=== PATIENT | female | born 1955 | race Caucasian/White ===

== ENCOUNTER 2018-06-29 15:42 | Emergency (ER) | payer BC ==
[~2018-06-29 15:42] MED LIST: ETOMIDATE INJ/PF 20 MG/10 ML SDV IV ONE; ROCURONIUM BROMIDE INJ 50 MG/5 ML VIAL IV ONE
[2018-06-29] MEDS ORDERED: ETOMIDATE INJ/PF 20 MG/10 ML SDV IV ONE (15:49)
[2018-06-29] MEDS ORDERED: ROCURONIUM BROMIDE INJ 50 MG/5 ML VIAL IV ONE (15:50)
[2018-06-29] MEDS ORDERED: NORMAL SALINE 1000 ML 1,000 ML IV ONE (15:54)
[2018-06-29 16:04] LABS: INTERNATIONAL RATION (INR) 0.85; PROTHROMBIN TIME 12.1 SEC (11.4-15.4)
--- NOTE | 2018-06-29 16:05 | ER Document Report ---
ED General - General Chief Complaint: Altered Mental Status Stated Complaint: DIFFICULTY BREATHING Time Seen by Provider: 06/29/18 15:52 TRAVEL OUTSIDE OF THE [place] IN LAST 30 DAYS: No - HPI Notes: Patient is a 63-year-old female that presents to the emergency department for chief complaint of altered mental status. EMS reports that patient was last known normal around noon or 1 PM today. When they arrived at her house she was responding to verbal commands but appeared confused and had left-sided weakness. Patient was wearing her 3 L nasal cannula oxygen and had a oxygen saturation of 50%. She had increased work of breathing and then became more apneic and unresponsive and route. EMS tried CPAP and then began bagging the patient. EMS noted that she began having a left-sided facial droop and route. Patient was unresponsive at presentation which limits my HPI Past Medical History: COPD Past Surgical History: Unknown Social History: History of tobacco use Family History: Reviewed and noncontributory for presenting illness Allergies: Reviewed, see documented allergy list. REVIEW OF SYSTEMS: Unable to obtain because of acuity of condition PHYSICAL EXAMINATION: Vital signs reviewed, nursing noted reviewed. GENERAL: Unresponsive HEAD: Atraumatic, normocephalic. EYES: PERRLA sclera anicteric, conjunctiva are normal. ENT: nares patent, oropharynx clear without exudates. Dry mucous membranes. NECK: Trachea midline, supple without lymphadenopathy LUNGS: Breath sounds diminished to auscultation bilaterally, apneic respirations HEART: Tachycardic rate and regular rhythm without murmurs ABDOMEN: Soft, nondistended, no masses appreciated. EXTREMITIES: No long bone deformity NEUROLOGICAL: GCS 3, unresponsive SKIN: Warm, Dry, normal turgor, no rashes or lesions noted on exposed skin - Related Data Allergies/Adverse Reactions: Iodinated Contrast- Oral and IV Dye [IV Dye, Iodine Containing] Allergy (Verified 06/29/18 15:55) Sulfa (Sulfonamide Antibiotics) Allergy (Verified 06/29/18 15:55) Past Medical History - Social History Smoking Status: Unknown if Ever Smoked Family History: None, Reviewed & Not Pertinent - Past Medical History Cardiac Medical History: Reports: Hx Hypertension Pulmonary Medical History: Reports: Hx Bronchitis, Hx COPD Psychiatric Medical History: Reports: Hx Depression - anxiety Past Surgical History: Reports: Hx Tonsillectomy - Immunizations Hx Diphtheria, Pertussis, Tetanus Vaccination: Yes Hx Pneumococcal Vaccination: 08/01/15 Physical Exam - Vital signs Vitals: Pulse Ox 94 06/29/18 15:45 Course - Re-evaluation Re-evalutation: 06/29/18 16:04 Vitals reviewed. Nursing notes reviewed. Patient presented by EMS unresponsive with a GCS of 3 and being ventilated by EMS with BVM. She was intubated for airway protection. One attempted intubation was successful. Patient is not sedated and has not had any neurologic function to this point. OG and Kelly cat heter were placed. EKG shows no STEMI. Patient's blood pressure did decrease slightly after intubation and she was started on IV fluids. She was transferred to CT scan. 06/29/18 17:02 CT shows no acute intracranial pathology including hemorrhage or ischemic stroke. Chest x-ray does show a small 10% pneumothorax with no tension component. Patient's pneumothorax was likely caused by BVM or her COPD. Her ABG shows hypercapnic respiratory failure. Patient was reevaluated and still has a GCS of 3T and is not on any sedation medicine. I did discuss her pneumothorax with the [facility] team who does not feel she is requiring pigtail catheter with their altitudes today. They do have the capacity to place a PICC line catheter in route. Patient's is now at bedside. He states she was acting "different" last night and started having a more difficult time breathing throughout today and became more altered around noon. Patient is outside the window for TPA. I did discuss her care with neurology at [facility] who agreed that without a good timeline and with the severity of her symptoms TPA should not be administered. Patient will be transferred to [facility] for further neurologic assessment. Laboratory 06/29/18 06/29/18 06/29/18 15:44 15:44 15:44 WBC 17.1 H RBC 4.56 Hgb 13.1 Hct 39.8 MCV 87 MCH 28.6 MCHC 32.8 RDW 15.1 H Plt Count 199 Total Counted 100 Seg Neutrophils % Not Reportable Seg Neuts % (Manual) 86 H Lymphocytes % Not Reportable Lymphocytes % (Manual) 7 L Monocytes % Not Reportable Monocytes % (Manual) 7 Eosinophils % Not Reportable Eosinophils % (Manual) 0 Basophils % Not Reportable Basophils % (Manual) 0 Absolute Neutrophils Not Reportable Abs Neuts (Manual) 14.7 H Absolute Lymphocytes Not Reportable Abs Lymphs (Manual) 1.2 Absolute Monocytes Not Reportable Abs Monocytes (Manual) 1.2 Absolute Eosinophils Not Reportable Absolute Eos (Manual) 0.0 Absolute Basophils Not Reportable Abs Basophils (Manual) 0.0 Toxic Vacuolation PRESENT Large Platelets PRESENT Platelet Comment ADEQUATE Polychromasia SLIGHT Basophilic Stippling PRESENT Anisocytosis SLIGHT PT 12.1 INR 0.85 APTT 28.0 Carbonic Acid HCO3/H2CO3 Ratio ABG pH ABG pCO2 ABG pO2 ABG HCO3 ABG Total CO2 ABG O2 Saturation ABG Base Excess FiO2 Sodium 129.0 L Potassium 4.8 Chloride 80 L Carbon Dioxide 40 H* Anion Gap 9 BUN 13 Creatinine 0.49 L Est GFR ( Amer) > 60 Est GFR (Non-Af Amer) > 60 Glucose 133 H Lactic Acid Calcium 9.0 Total Bilirubin 0.4 Direct Bilirubin 0.3 Neonat Total Bilirubin Not Reportable Neonat Direct Bilirubin Not Reportable Neonat Indirect Bili Not Reportable AST 24 ALT 35 Alkaline Phosphatase 96 Creatine Kinase 98 CK-MB (CK-2) Troponin I Total Protein 7.2 Albumin 3.9 06/29/18 06/29/18 06/29/18 15:44 15:44 16:25 WBC RBC Hgb Hct MCV MCH MCHC RDW Plt Count Total Counted Seg Neutrophils % Seg Neuts % (Manual) Lymphocytes % Lymphocytes % (Manual) Monocytes % Monocytes % (Manual) Eosinophils % Eosinophils % (Manual) Basophils % Basophils % (Manual) Absolute Neutrophils Abs Neuts (Manual) Absolute Lymphocytes Abs Lymphs (Manual) Absolute Monocytes Abs Monocytes (Manual) Absolute Eosinophils Absolute Eos (Manual) Absolute Basophils Abs Basophils (Manual) Toxic Vacuolation Large Platelets Platelet Comment Polychromasia Basophilic Stippling Anisocytosis PT INR APTT Carbonic Acid 2.11 H HCO3/H2CO3 Ratio 17:1 ABG pH 7.34 L ABG pCO2 70.0 H* ABG pO2 169.2 H ABG HCO3 36.5 H ABG Total CO2 38.6 H ABG O2 Saturation 99.0 H ABG Base Excess 8.0 FiO2 45% Sodium Potassium Chloride Carbon Dioxide Anion Gap BUN Creatinine Est GFR ( Amer) Est GFR (Non-Af Amer) Glucose Lactic Acid 0.7 Calcium Total Bilirubin Direct Bilirubin Neonat Total Bilirubin Neonat Direct Bilirubin Neonat Indirect Bili AST ALT Alkaline Phosphatase Creatine Kinase CK-MB (CK-2) 9.61 H Troponin I 0.035 Total Protein Albumin Chest X-Ray 06/29/18 15:48 IMPRESSION: Right apical pneumothorax estimated 10%. No mediastinal shift. Head CT 06/29/18 15:48 IMPRESSION: Chronic changes of atrophy and small vessel disease. Subtle asymmetric area of decreased attenuation in the right posterior frontal anterior parietal lobe. Developing infarct cannot entirely be excluded. This is best demonstrated on series 2, image 20 EVIDENCE OF ACUTE STROKE: Equivocal. - Vital Signs Vital signs: Temp Pulse Resp BP Pulse Ox 12 191/100 H 98 06/29/18 16:51 06/29/18 16:51 06/29/18 16:51 - Laboratory Result Diagrams: 06/29/18 15:44 06/29/18 15:44 Laboratory results interpreted by me: 06/29/18 06/29/18 06/29/18 15:44 15:44 15:44 WBC 17.1 H RDW 15.1 H Seg Neuts % (Manual) 86 H Lymphocytes % (Manual) 7 L Abs Neuts (Manual) 14.7 H Carbonic Acid ABG pH ABG pCO2 ABG pO2 ABG HCO3 ABG Total CO2 ABG O2 Saturation Sodium 129.0 L Chloride 80 L Carbon Dioxide 40 H* Creatinine 0.49 L Glucose 133 H CK-MB (CK-2) 9.61 H 06/29/18 16:25 WBC RDW Seg Neuts % (Manual) Lymphocytes % (Manual) Abs Neuts (Manual) Carbonic Acid 2.11 H ABG pH 7.34 L ABG pCO2 70.0 H* ABG pO2 169.2 H ABG HCO3 36.5 H ABG Total CO2 38.6 H ABG O2 Saturation 99.0 H Sodium Chloride Carbon Dioxide Creatinine Glucose CK-MB (CK-2) - EKG Interpretation by Me Additional EKG results interpreted by me: 06/29/18 16:03 Interpreted by myself 1553: Sinus tachycardia, rate 127, normal axis, no STEMI Procedures - Intubation Orotracheal Time of Intubation: 16:07 Airway evaluation: Normal anatomy Mallampati Classification: Class 2 Medications: Etomidate, Other - Roccuronium Intubation method: Orotracheal Equipment used: Glidescope ETT size: 7.5 ETT secured at: Gums ETT secured at (cm): 23 Breath Sounds after Intubation: Equal Post Intubation Xray: Yes Intubation Complications: No complications Critical Care Note - Critical Care Note Total time excluding time spent on procedures (mins): 60 Comments: Critical care time 60 exclusive from separate billable procedures for a patient requiring complex medical decision making, and high potential for clinical deterioration. Time spent obtaining history from patient or surrogate, discussions with consultants, development of treatment plan with patient or surrogate, evaluation of patient's response to treatment, examination of patient, ordering and performing treatments and interventions, ordering and review of laboratory studies, re-evaluation of patient's condition, ordering and review of radiographic studies and review of old charts Discharge - Discharge Clinical Impression: Pneumothorax, right, Unresponsive Hypercapnic respiratory failure Qualifiers: Chronicity: acute Qualified Code(s): J96.02 - Acute respiratory failure with hypercapnia Condition: Critical Disposition: [facility]
[2018-06-29 16:11] LABS: HEMATOCRIT 39.8 % (36.0-47.0); HEMOGLOBIN 13.1 g/dL (12.0-15.5); MEAN CORPUSCULAR HEMOGLOBIN 28.6 pg (27.0-33.4); MEAN CORPUSCULAR HGB CONC 32.8 g/dL (32.0-36.0); MEAN CORPUSCULAR VOLUME 87 fl (80-97); PLATELET COUNT 199 10^3/uL (150-450); RED BLOOD COUNT 4.56 10^6/uL (3.72-5.28); RED CELL DISTRIBUTION WIDTH 15.1 % (11.5-14.0); WHITE BLOOD COUNT 17.1 10^3/uL (4.0-10.5)
[2018-06-29 16:25] LABS: ALANINE AMINOTRANSFERASE 35 U/L (9-52); ALBUMIN 3.9 g/dL (3.5-5.0); ALKALINE PHOSPHATASE 96 U/L (38-126); ASPARTATE AMINO TRANSFERASE 24 U/L (14-36); BILIRUBIN,DIRECT 0.3 mg/dL (0.0-0.4); BILIRUBIN,TOTAL 0.4 mg/dL (0.2-1.3); BLOOD UREA NITROGEN 13 mg/dL (7-20); CHLORIDE 80 mmol/L (98-107); CREATINE KINASE 98 U/L (30-135); GLUCOSE 133 mg/dL (75-110); POTASSIUM 4.8 mmol/L (3.6-5.0); TOTAL PROTEIN 7.2 g/dL (6.3-8.2)
--- NOTE | 2018-06-29 16:28 | RADIOLOGY REPORT (SQ) ---
EXAM DESCRIPTION: CT HEAD WITHOUT COMPLETED DATE/TIME: 06/29/2018 4:14 pm REASON FOR STUDY: t2 stroke alert COMPARISON: 09/04/2007 TECHNIQUE: Axial images acquired through the brain without intravenous contrast. Images reviewed wi th bone, brain and subdural windows. Additional sagittal and coronal reconstructions were generated. Images stored on PACS. All CT scanners at this facility use dose modulation, iterative reconstruction, and/or weight based d osing when appropriate to reduce radiation dose to as low as reasonably achievable (ALARA). [facility]: Dose Right [facility]: CareDose [facility]: Dose Right [facility]: Teradose 4D [facility]: [employer] RADIATION DOSE: CT Rad equipment meets quality standard of care and radiation dose reduction techniq ues were employed. CTDIvol: 53.2 mGy. DLP: 964 mGy-cm. mGy. LIMITATIONS: None. FINDINGS: VENTRICLES: Normal in size. CEREBRUM: No masses. No hemorrhage. No midline shift. Areas of low density in the white matter mos t likely due to chronic micro-vascular ischemic change. Subtle asymmetric decreased attenuation in t he right posterior frontal anterior parietal region on the right. This is a soft finding but early i schemic change cannot be excluded. Correlation with MRI may be helpful for further evaluation. No e vidence for acute infarction. CEREBELLUM: No masses. No hemorrhage. No alteration of density. No evidence for acute infarction. EXTRAAXIAL SPACES: Mild age-related involutional change. No fluid collections. No masses. ORBITS AND GLOBE: No intra- or extraconal masses. Normal contour of globe without masses. CALVARIUM: No fracture. PARANASAL SINUSES: No fluid or mucosal thickening. SOFT TISSUES: No mass or hematoma. OTHER: No other significant finding. PARANASAL SINUSES: There is left maxillary sinusitis. IMPRESSION: Chronic changes of atrophy and small vessel disease. Subtle asymmetric area of decrease d attenuation in the right posterior frontal anterior parietal lobe. Developing infarct cannot entir dayana be excluded. This is best demonstrated on series 2, image 20 EVIDENCE OF ACUTE STROKE: Equivocal. COMMENT: Pertinent findings on the imaging study reported as a CRITICAL RESULT to [facility] Multani 6:18 on 06/29/2018. Category of Critical Result: Stroke protocol. TECHNICAL DOCUMENTATION: JOB ID: [id number] Quality ID # [id number]: Final reports with documentation of one or more dose reduction techniques (e.g., Au tomated exposure control, adjustment of the mA and/or kV according to patient size, use of iterative reconstruction technique) 2010 [employer]- All Rights Reserved Reading location - IP/workstation name: [email or web address]
--- NOTE | 2018-06-29 16:29 | RADIOLOGY REPORT (SQ) ---
EXAM DESCRIPTION: CHEST SINGLE VIEW COMPLETED DATE/TIME: 06/29/2018 4:17 pm REASON FOR STUDY: t2 stroke alert COMPARISON: 12/21/2015 NUMBER OF VIEWS: One view. TECHNIQUE: Single frontal radiographic image of the chest acquired. LIMITATIONS: None. FINDINGS: LUNGS AND PLEURA: Chronic blunting of the left costophrenic angle with ipsilateral volume loss. COPD. Right apical pneumothorax estimated 10%. MEDIASTINUM AND HEART: Stable heart size and mediastinal structures. SUPPORT DEVICES: Appropriate position of endotracheal and nasogastric tubes. BONY STRUCTURES: No acute findings. HARDWARE: None. OTHER: No other significant finding. IMPRESSION: Right apical pneumothorax estimated 10%. No mediastinal shift. COMMENT: Findings were called to Dr. Carroll at 1623 hours. Reading location - IP/workstation name: [email or web address]
[2018-06-29 16:33] LABS: ANION GAP 9 (5-19)
[2018-06-29 16:35] LABS: ARTERIAL BLOOD H2CO3 2.11 mmol/L (1.05-1.35); ARTERIAL BLOOD HCO3 36.5 mmol/L (20-24); ARTERIAL BLOOD PH 7.34 (7.35-7.45); ARTERIAL BLOOD PO2 169.2 mmHg (80-100); ARTERIAL BLOOD TOTAL CO2 38.6 mmol/L (21-25)
[2018-06-29 16:35] LABS: CREATINE KINASE MB 9.61 ng/mL (<4.55)
[2018-06-29 16:37] LABS: ARTERIAL BLOOD FIO2 45%
[2018-06-29 16:40] LABS: CARBON DIOXIDE 40 mmol/L (22-30)
[2018-06-29 16:48] LABS: ABSOLUTE LYMPHOCYTES# (MANUAL) 1.2 10^3/uL (0.5-4.7); ABSOLUTE MONOCYTES # (MANUAL) 1.2 10^3/uL (0.1-1.4); ABSOLUTE NEUTROPHILS# (MANUAL) 14.7 10^3/uL (1.7-8.2); BASOPHILS % (MANUAL) 0 % (0-2); EOSINOPHILS % (MANUAL) 0 % (0-6); LYMPHOCYTES % (MANUAL) 7 % (13-45); MONOCYTES % (MANUAL) 7 % (3-13); SEGMENTED NEUTROPHILS % (MAN) 86 % (42-78); TOTAL CELLS COUNTED 100
[2018-06-29 16:49] LABS: TROPONIN I 0.035 ng/mL
[2018-06-29 16:51] LABS: ANISOCYTOSIS SLIGHT; PLATELET COMMENT ADEQUATE; PLATELET LARGE PRESENT; POLYCHROMASIA SLIGHT; TOXIC VACUOLATION PRESENT
[2018-06-29 17:17] VITALS: BP 190/98
--- NOTE | 2018-06-29 23:39 | EKG REPORT ---
SEVERITY:- OTHERWISE NORMAL ECG - SINUS TACHYCARDIA BORDERLINE RIGHT AXIS DEVIATION : Confirmed by: Joe aTm 29-Jun-2018 23:38:01
== END 2018-06-29 17:17 | disposition short-term general hospital (02) ==
LOC: ER 15:42
PROC: 0BH17EZ Insertion of Endotracheal Airway into Trachea, Via Natural or Artificial Opening (ICD-10-PCS; principal; 2018-06-29)
DX: J93.9 Pneumothorax, unspecified (principal); J96.02 Acute respiratory failure with hypercapnia; R41.82 Altered mental status, unspecified; R53.1 Weakness; J44.9 Chronic obstructive pulmonary disease, unspecified; I10 Essential (primary) hypertension
CPT/HCPCS: 31500; 93005; 99291; 96360; 51702; 36415; 87040; 82553; 82803; 82550; 85025; 85610; 85730; 80053; 84484; 83605; 71045; 70450; 94660; 93010; J3490 ×2; J7030

== ENCOUNTER → 2018-09-05 | Outpatient (CLI) | payer BC ==
--- NOTE | 2018-09-07 13:48 | RADIOLOGY REPORT (SQ) ---
EXAM DESCRIPTION: CT LUNG CANCER SCREENING COMPLETED DATE/TIME: 09/05/2018 12:57 pm REASON FOR STUDY: Z87.891 PERSONAL HISTORY OF NICOTINE DEPENDENCE Z87.891 PERSONAL HISTORY OF NICOT INE DEPENDENCE Has the patient had a Chest CT scan within the past year? Was the patient offered tobacco cessation counseling? Was the patient engaged in shared decision making for this test? Does the patient have signs or symptoms of Lung Cancer? Is the patient a smoker? How many pack years? How many years since quitting smoking? Patients age: COMPARISON: None. TECHNIQUE: Low Dose CT scan performed of the chest without intravenous contrast for purposes of scre ening for lung cancer. Images reviewed with lung, soft tissue and bone windows. Reconstructed coron al and sagittal MPR images reviewed. All images stored on PACS. All CT scanners at this facility use dose modulation, iterative reconstruction, and/or weight based d osing when appropriate to reduce radiation dose to as low as reasonably achievable (ALARA). [facility]: Dose Right [facility]: CareDose [facility]: Dose Right [facility]: Teradose 4D [facility]: [employer] RADIATION DOSE: CT Rad equipment meets quality standard of care and radiation dose reduction techniq ues were employed. CTDIvol: 2.1 mGy. DLP: 83 mGy-cm. mGy. . LIMITATIONS: No technical limitations. FINDINGS: LUNGS AND PLEURA: No masses or nodules. No pleural effusions or calcifications. No pne umothorax. Fairly extensive bilateral emphysematous change. Scattered areas of linear scarring. HILAR AND MEDIASTINAL STRUCTURES: No identified masses. No abnormal nodes. HEART AND VASCULAR STRUCTURES: No aortic aneurysm. No pericardial effusion. No cardiac devices. CORONARY ARTERY CALCIFICATIONS: No significant calcifications. UPPER ABDOMEN: No significant findings. THYROID AND OTHER SOFT TISSUES: No masses. No adenopathy. BONY STRUCTURES: No significant finding. OTHER: No other significant findings. LUNGS AND PLEURA: No masses or nodules. No pleural effusions or calcifications. No pneumothorax. Bilateral emphysematous changes. There are linear areas of scar. Small subpleural blebs. IMPRESSION: No significant pulmonary nodules. Other findings as above. LUNGRADS: LUNGRADS: 1 NEGATIVE. NO NODULES, OR DEFINITELY BENIGN NODULES MODIFIER: S CLINICALLY SIGNIFICANT OR POTENTIALLY CLINICALLY SIGNIFICANT FINDINGS (non lung cancer) RECOMMENDATION: Continue annual screening with LDCT in 12 months. COMMENT: CRITERIA: No lung nodules. Nodules with specific calcifications: Complete, central, popcorn, concentric rings and fat containin g nodules. TECHNICAL DOCUMENTATION: JOB ID: [id number] Quality ID # [id number]: Final reports with documentation of one or more dose reduction techniques (e.g., Au tomated exposure control, adjustment of the mA and/or kV according to patient size, use of iterative reconstruction technique) 2010 [facility] [place] Radiology Reading location - IP/workstation name: [email or web address]
== END ==
LOC: RAD 12:42
PROVIDERS: ATTEND Internal Medicine Pulmonary Disease
DX: Z12.2 Encounter for screening for malignant neoplasm of respiratory organs (principal); Z09 Encounter for follow-up examination after completed treatment for conditions other than malignant neoplasm; Z87.891 Personal history of nicotine dependence; J43.9 Emphysema, unspecified
CPT/HCPCS: G0297

== ENCOUNTER 2019-04-01 13:17 | Inpatient (IN) | payer BC ==
[2019-04-01 13:49] LABS: ABSOLUTE BASOPHILS # (AUTO) 0.1 10^3/uL (0.0-0.2); ABSOLUTE EOSINOPHILS # (AUTO) 0.1 10^3/uL (0.0-0.6); ABSOLUTE MONOCYTES (AUTO) 0.6 10^3/uL (0.1-1.4); ABSOLUTE NEUT (AUTO) 8.3 10^3/uL (1.7-8.2); BASOPHILS % (AUTO) 0.5 % (0-2); EOSINOPHILS % (AUTO) 0.5 % (0-6); HEMATOCRIT 38.8 % (36.0-47.0); HEMOGLOBIN 12.8 g/dL (12.0-15.5); LYMPHOCYTES % (AUTO) 18.4 % (13-45); MEAN CORPUSCULAR HEMOGLOBIN 28.3 pg (27.0-33.4); MEAN CORPUSCULAR VOLUME 86 fl (80-97); MONOCYTES % (AUTO) 5.8 % (3-13); PLATELET COUNT 283 10^3/uL (150-450); RED BLOOD COUNT 4.52 10^6/uL (3.72-5.28); RED CELL DISTRIBUTION WIDTH 16.6 % (11.5-14.0); SEGMENTED NEUTROPHILS % (AUTO) 74.8 % (42-78); TOTAL CELLS COUNTED % (AUTO) 100 %; WHITE BLOOD COUNT 11.1 10^3/uL (4.0-10.5)
[2019-04-01 13:59] LABS: ALBUMIN 4.1 g/dL (3.5-5.0); ALKALINE PHOSPHATASE 107 U/L (38-126); ASPARTATE AMINO TRANSFERASE 21 U/L (14-36); BILIRUBIN,TOTAL 0.3 mg/dL (0.2-1.3); BLOOD UREA NITROGEN 10 mg/dL (7-20); CALCIUM 9.2 mg/dL (8.4-10.2); CHLORIDE 92 mmol/L (98-107); CREATINE KINASE 58 U/L (30-135); GLUCOSE 108 mg/dL (75-110); POTASSIUM 4.9 mmol/L (3.6-5.0); TOTAL PROTEIN 7.5 g/dL (6.3-8.2)
[2019-04-01 14:05] LABS: ANION GAP 5 (5-19)
[2019-04-01 14:07] LABS: CARBON DIOXIDE 40 mmol/L (22-30)
[2019-04-01 14:11] LABS: CREATINE KINASE MB 4.49 ng/mL (<4.55); TROPONIN I 0.027 ng/mL
--- NOTE | 2019-04-01 14:18 | RADIOLOGY REPORT (SQ) ---
EXAM DESCRIPTION: CHEST SINGLE VIEW COMPLETED DATE/TIME: 04/01/2019 1:54 pm REASON FOR STUDY: respiratory distress; on bipap COMPARISON: None. EXAM PARAMETERS: NUMBER OF VIEWS: One view. TECHNIQUE: Single frontal radiographic view of the chest acquired. RADIATION DOSE: NA LIMITATIONS: None. FINDINGS: LUNGS AND PLEURA: Chronic blunting of the left CP angle. Hyperinflation. Lungs are clear . MEDIASTINUM AND HILAR STRUCTURES: No masses. Contour normal. HEART AND VASCULAR STRUCTURES: Heart normal in size. Normal vasculature. BONES: No acute findings. HARDWARE: None in the chest. OTHER: No other significant finding. IMPRESSION: COPD. Chronic blunting of the left CP angle. No acute findings. TECHNICAL DOCUMENTATION: JOB ID: [id number] 2010 [employer]- All Rights Reserved Reading location - IP/workstation name: [email or web address]
[2019-04-01] MEDS ORDERED: METHYLPREDNISOLONE INJ 125 MG/2 ML SDV IV ONE (17:08)
[2019-04-01] MEDS ORDERED: ALBUTEROL SULFATE 0.083% NEB 2.5 MG/3 ML AMPUL NEB ONE (17:08)
--- NOTE | 2019-04-01 17:21 | ER Document Report ---
ED General - General Chief Complaint: Breathing Difficulty Stated Complaint: RESPIRATORY DISTRESS Time Seen by Provider: 04/01/19 16:10 Primary Care Provider: JOSIAH ARRIAGA MD [Primary Care Provider] - Follow up as needed Notes: 63-year-old female presents the emergency department complaining of increasing shortness of breath for the past week that got acutely worse today. Denies any increased cough, any nausea or vomiting, any increased sleepiness. Does admit chills and sweats that started today. Today she became acutely short of breath and called EMS, they found her to be 83% on her usual 3 L via nasal cannula. They started her on CPAP and gave her multiple breathing treatments and brought her to the emergency department. TRAVEL OUTSIDE OF THE [place] IN LAST 30 DAYS: No - Related Data Allergies/Adverse Reactions: Iodinated Contrast Media [IV Dye, Iodine Containing] Allergy (Verified 06/29/18 15:55) Sulfa (Sulfonamide Antibiotics) Allergy (Verified 06/29/18 15:55) Past Medical History - General Information source: Patient - Social History Smoking Status: Current Every Day Smoker Chew tobacco use (# tins/day): No Frequency of alcohol use: None Drug Abuse: None Family History: Reviewed & Not Pertinent Patient has suicidal ideation: No Patient has homicidal ideation: No - Past Medical History Cardiac Medical History: Reports: Hx Hypertension Pulmonary Medical History: Reports: Hx Bronchitis, Hx COPD Renal/ Medical History: Denies: Hx Peritoneal Dialysis Psychiatric Medical History: Reports: Hx Depression - anxiety Past Surgical History: Reports: Hx Tonsillectomy - Immunizations Hx Diphtheria, Pertussis, Tetanus Vaccination: Yes Hx Pneumococcal Vaccination: 09/08/14 Review of Systems - Review of Systems Constitutional: See HPI, Chills, Diaphoresis EENT: No symptoms reported Cardiovascular: No symptoms reported Respiratory: See HPI, Short of breath -: Yes All other systems reviewed and negative Physical Exam - Vital signs Vitals: Pulse Ox 97 04/01/19 13:17 Interpretation: Tachypneic - Notes Notes: GENERAL: Alert, interacts well. Appears mildly short of breath on BiPAP. HEAD: Normocephalic, atraumatic EYES: Pupils equal, round and reactive to light, extraocular movements intact. ENT: Oral mucosa moist, tongue midline. NECK: Full range of motion, supple, trachea midline. LUNGS: Mild end expiratory wheezing, poor air movement, appears mildly short of breath, tachypneic. HEART: Regular rate and rhythm, no murmurs, gallops, rubs. ABDOMEN: Soft, nontender, nondistended, bowel sounds present in all 4 quadrants. EXTREMITIES: Moves all 4 extremities spontaneously, no edema, radial and dorsalis pedis pulses 2/4 bilaterally. No cyanosis. NEUROLOGICAL: Alert and oriented x3, normal speech. PSYCH: Normal mood, normal affect. SKIN: Warm, Dry, normal turgor, no rashes or lesions noted. Course - Re-evaluation Re-evalutation: 04/01/19 17:23 CBC shows slight leukocytosis at 11.1, CMP shows elevated CO2 and slight low sodium, troponin detectable at 0.027, proBNP minimally elevated at 346, chest x- ray shows chronic but no acute changes. 04/01/19 17:24 On recheck in the emergency department the patient went from being mildly short of breath and mildly tachypneic at a rate of 22 to being severely short of breath, almost no air movement was auscultated, quite tachypneic at a rate of 35 and hypoxic despite being on BiPAP at 35%. I did increase her oxygen temporarily to 80% on the BiPAP and increased her BiPAP settings from 12/5 to 14/6, we gave her 3 more albuterol breathing treatments for a total of 7.5. After approximately 10 minutes the patient is feeling significantly better, no longer requiring 80% FiO2, she is back down to 40% FiO2, tachypnea has slowed, air movement has improved and she states she no longer feels like she is going to . Discussed patient with Dr. Graves from the hospitalist service who agrees to accept the patient to his service on the [facility]. Arterial blood gases pending. - Vital Signs Vital signs: Temp Pulse Resp BP Pulse Ox 27 H 128/72 H 95 04/01/19 15:31 04/01/19 15:31 04/01/19 15:31 - Laboratory Result Diagrams: 04/01/19 13:15 04/01/19 13:15 Laboratory results interpreted by me: 04/01/19 04/01/19 04/01/19 13:15 13:15 13:15 WBC 11.1 H RDW 16.6 H Absolute Neuts (auto) 8.3 H Sodium 136.5 L Chloride 92 L Carbon Dioxide 40 H* NT-Pro-B Natriuret Pep 346 H - EKG Interpretation by Me Additional EKG results interpreted by me: 04/01/19 17:24 EKG shows sinus tachycardia at a rate of 99, 1 PVC, normal axis, normal intervals, no ST segment elevations or depressions, no T wave inversions per my interpretation. Critical Care Note - Critical Care Note Total time excluding time spent on procedures (mins): 38 Discharge - Discharge Clinical Impression: COPD exacerbation, Tobacco dependence, Acute exacerbation of chronic obstructive pulmonary disease (COPD) Condition: Fair Disposition: ADMITTED INPATIENT Admitting Provider: Ely (Hospitalist) Unit Admitted: IMCU Referrals: JOSIAH ARRIAGA MD [Primary Care Provider] - Follow up as needed
--- NOTE | 2019-04-01 18:37 | PDOC H&P ---
History of Present Illness Admission Date/PCP: 04/01/19 17:31 JOSIAH ARRIAGA MD History of Present Illness: RAMÍREZ BATES is a 63 year old female with a history of COPD and chronic respirat ory failure with hypoxemia and hypercapnia who presents with several days worth of worsening shortness of breath. She was short of breath at rest but it got worse with exertion. She is not been running a fever. She is not been around anyone she knows to definitely be sick. It got acutely worse this morning and she called EMS. Apparently when they got there she was on her typical 3 L per nasal cannula and her oxygen saturations were in the low 80s. They turn her oxygen up and she was still struggling to breathe. In the ER she was put on BiPAP and was given several breathing treatments. She was noted to be wheezing. Her chest x-ray showed old chronic changes but nothing new such as an infiltrate. Past Medical History Cardiac Medical History: Reports: Hypertension Pulmonary Medical History: Reports: Bronchitis, Chronic Obstructive Pulmonary Disease (COPD) Psychiatric Medical History: Reports: Depression - anxiety Past Surgical History Past Surgical History: Reports: Tonsillectomy Social History Smoking Status: Current Every Day Smoker Electronic Cigarette use?: No Frequency of Alcohol Use: None Hx Recreational Drug Use: No Drugs: None Hx Prescription Drug Abuse: No Family History Family History: Reviewed & Not Pertinent, Arthritis, COPD, Hyperlipidemia, Hypertension Parental Family History Reviewed: Yes Children Family History Reviewed: Yes Sibling(s) Family History Reviewed.: Yes Medication/Allergy Home Medications: Budesonide/Formoterol Fumarate [Symbicort HFA 160-4.5 mcg Inhaler 6 gm] 2 puff IH Q12 04/20/15 Diltiazem HCl [Cartia Xt] 120 mg PO DAILY 04/20/15 Duloxetine HCl [Cymbalta] 30 mg PO DAILY 04/20/15 Tiotropium [place] [Spiriva Handihaler 18 mcg/dose (30 Dose)] 1 cap IH DAILY 04/20/15 Trazodone HCl [Desyrel 50 mg Tablet] 50 mg PO QHS 04/20/15 Ziprasidone HCl 80 mg PO BIDACBS 04/20/15 Albuterol Sulfate [Ventolin 0.083% Neb 2.5 mg/3 mL Ampul] 2.5 mg NEB Q6HP PRN #14 vial.neb 04/28/15 Polyethylene Glycol 3350 [Miralax Powder 17 gm/Packet] 17 gm PO DAILY powd.pack 04/28/15 Albuterol Sulfate [Proair HFA Inhalation Aerosol 8.5 gm MDI] 2 puff IH Q4HP PRN 12/21/15 Levofloxacin [Levaquin 750 mg Tablet] 750 mg PO DAILY #5 tablet 12/26/15 Prednisone [Sterapred] 5 mg PO ASDIR #1 tab.ds.pk 12/26/15 Allergies/Adverse Reactions: Iodinated Contrast Media [IV Dye, Iodine Containing] Allergy (Verified 06/29/18 15:55) Sulfa (Sulfonamide Antibiotics) Allergy (Verified 06/29/18 15:55) Review of Systems All systems: reviewed and no additional remarkable complaints except as stated - All systems were reviewed and were negative except as noted in the HPI Physical Exam Vital Signs: Temp Pulse Resp BP Pulse Ox 24 H 135/65 H 95 04/01/19 17:31 04/01/19 17:31 04/01/19 17:31 General appearance: PRESENT: cooperative, disheveled, mild distress, obese Head exam: PRESENT: atraumatic, normocephalic Eye exam: PRESENT: EOMI, PERRLA. ABSENT: conjunctival injection, nystagmus, scl eral icterus Ear exam: PRESENT: normal external ear exam Mouth exam: PRESENT: dry mucosa, neck supple Teeth exam: PRESENT: poor dentation Neck exam: PRESENT: full ROM. ABSENT: carotid bruit, JVD, lymphadenopathy, meningismus, tenderness, thyromegaly Respiratory exam: PRESENT: accessory muscle use, decreased breath sounds, prolonged expiratory phas, symmetrical, wheezes. ABSENT: chest wall tenderness, rales, retraction, rhonchi, tachypnea, unlabored Cardiovascular exam: PRESENT: RRR, +S1, +S2 Pulses: PRESENT: normal carotid pulses Vascular exam: PRESENT: normal capillary refill GI/Abdominal exam: PRESENT: normal bowel sounds, soft. ABSENT: distended, guarding, rebound, tenderness Extremities exam: ABSENT: clubbing, pedal edema Musculoskeletal exam: PRESENT: normal inspection. ABSENT: deformity Neurological exam: PRESENT: alert, awake, oriented to person, oriented to place, oriented to situation, CN II-XII grossly intact. ABSENT: motor sensory deficit Psychiatric exam: PRESENT: anxious Skin exam: PRESENT: dry, warm Results Laboratory Results: 04/01/19 13:15 04/01/19 13:15 04/01/19 04/01/19 13:15 13:15 WBC 11.1 H RBC 4.52 Hgb 12.8 Hct 38.8 MCV 86 MCH 28.3 MCHC 33.0 RDW 16.6 H Plt Count 283 Seg Neutrophils % 74.8 Sodium 136.5 L Potassium 4.9 Chloride 92 L Carbon Dioxide 40 H* Anion Gap 5 BUN 10 Creatinine 0.76 Est GFR ( Amer) > 60 Glucose 108 Calcium 9.2 Total Bilirubin 0.3 AST 21 Alkaline Phosphatase 107 Total Protein 7.5 Albumin 4.1 04/01/19 04/01/19 13:15 13:15 Creatine Kinase 58 CK-MB (CK-2) 4.49 Troponin I 0.027 NT-Pro-B Natriuret Pep 346 H Impressions: Chest X-Ray 04/01/19 13:27 IMPRESSION: COPD. Chronic blunting of the left CP angle. No acute findings. Assessment and Plan - Diagnosis (1) Acute exacerbation of chronic obstructive pulmonary disease (COPD) Is this a current diagnosis for this admission?: Yes Plan: Respiratory support with BiPAP and nasal cannula as needed, IV Solu-Medrol, bronchodilators. We will add doxycycline. (2) Acute and chronic respiratory failure ([id number]) Qualifiers: Respiratory failure complication: hypoxia and hypercapnia Qualified Code(s): J96.21 - Acute and chronic respiratory failure with hypoxia; J96.22 - Acute and chronic respiratory failure with hypercapnia Is this a current diagnosis for this admission?: Yes Plan: She is usually on 3 L at home, needing more ventilatory support at this time, mainly to overcome the obstructive process. She is also a CO2 retainer, and her baseline PCO2 is somewhere in the mid upper 50s. A blood gas is pending, but her serum CO2 is 40 and so I suspect that her arterial PCO2 is elevated, possibly above her baseline. If so, BiPAP will help with that as well. - Time Time Spent with patient: 35 or more minutes - Inpatient Certification Based on my medical assessment, after consideration of the patient's comorbidities, presenting symptoms, or acuity I expect that the services needed warrant INPATIENT care.: Yes I certify that my determination is in accordance with my understanding of Medicare's requirements for reasonable and necessary INPATIENT services [42 CFR 412.3e].: Yes Medical Necessity: Significant Comorbidiites Make Outpatient Treatment Too Risky, Need Close Monitoring Due to Risk of Patient Decompensation, Need for Nebulizer Therapy and Monitoring of Response, Risk of Complication if Not Cared For in Hospital
[2019-04-01] MEDS: ALBUTEROL SULFATE 0.083% NEB 2.5 MG/3 ML AMPUL NEB PRN ×2 (19:25→23:53)
[2019-04-01] MEDS: RINGERS SOLUTION,LACTATED 1,000 ML IV PRN (19:29)
[2019-04-01] MEDS: IPRATROPIUM/ALBUTEROL 0.5-2.5 MG/3 ML AMPUL NEB SCH (20:03)
[2019-04-01 20:19] LABS: ARTERIAL BLOOD BASE EXCESS 10.5 mmol/L; ARTERIAL BLOOD H2CO3 2.34 mmol/L (1.05-1.35); ARTERIAL BLOOD HCO3 39.4 mmol/L (20-24); ARTERIAL BLOOD PH 7.32 (7.35-7.45); ARTERIAL BLOOD PO2 64.9 mmHg (80-100); ARTERIAL BLOOD TOTAL CO2 41.8 mmol/L (21-25)
[2019-04-01 20:26] LABS: ARTERIAL BLOOD FIO2 35%; ARTERIAL BLOOD PCO2 77.9 mmHg (35-45)
--- NOTE | 2019-04-01 22:02 | EKG REPORT ---
SEVERITY:- OTHERWISE NORMAL ECG - SINUS TACHYCARDIA VENTRICULAR PREMATURE COMPLEX : Confirmed by: Joe Tam 01-Apr-2019 22:01:27
[2019-04-01 23:04] LABS: ARTERIAL BLOOD BASE EXCESS 6.9 mmol/L; ARTERIAL BLOOD H2CO3 2.13 mmol/L (1.05-1.35); ARTERIAL BLOOD HCO3 35.3 mmol/L (20-24); ARTERIAL BLOOD O2 SATURATION 92.8 % (94-98); ARTERIAL BLOOD PH 7.32 (7.35-7.45); ARTERIAL BLOOD PO2 72.9 mmHg (80-100); ARTERIAL BLOOD TOTAL CO2 37.5 mmol/L (21-25)
[2019-04-01 23:06] LABS: ARTERIAL BLOOD FIO2 35%
[2019-04-01 23:07] LABS: ARTERIAL BLOOD PCO2 70.8 mmHg (35-45)
[2019-04-01] MEDS: METHYLPREDNISOLONE INJ 125 MG/2 ML SDV IV SCH (23:11)
[2019-04-01] MEDS: HEPARIN SOD (PORCINE) 5,000 UNIT/ML 1 ML VIAL SUBCUT SCH (23:17)
[2019-04-01] MEDS: DOXYCYCLINE HYCLATE 100 MG in DEXTROSE 5%-WATER 250 ML IV SCH (23:17)
[2019-04-02] MEDS ORDERED: INFLUENZA QUAD (6MOS+) 2019-20 VAC 0.5 ML SYR IM ONE (01:04)
[2019-04-02] MEDS: IPRATROPIUM/ALBUTEROL 0.5-2.5 MG/3 ML AMPUL NEB SCH ×4 (02:15→19:34)
[2019-04-02 02:16] LABS: APPEARANCE,URINE SLIGHTLY-CLOUDY; BILIRUBIN,URINE NEGATIVE (NEGATIVE); COLOR,URINE YELLOW; GLUCOSE, URINE NEGATIVE (NEGATIVE); KETONES,URINE 20 mg/dL (NEGATIVE); LEUKOCYTE ESTERASE,URINE SMALL (NEGATIVE); NITRITE,URINE NEGATIVE (NEGATIVE); PROTEIN,URINE 100 mg/dL (NEGATIVE); URINE SPECIFIC GRAVITY 1.019; UROBILINOGEN,URINE NEGATIVE mg/dL (<2.0)
[2019-04-02 02:39] LABS: ARTERIAL BLOOD BASE EXCESS 8.7 mmol/L; ARTERIAL BLOOD FIO2 35%; ARTERIAL BLOOD H2CO3 2.09 mmol/L (1.05-1.35); ARTERIAL BLOOD HCO3 36.7 mmol/L (20-24); ARTERIAL BLOOD O2 SATURATION 98.8 % (94-98); ARTERIAL BLOOD PH 7.34 (7.35-7.45); ARTERIAL BLOOD PO2 151.6 mmHg (80-100); ARTERIAL BLOOD TOTAL CO2 38.9 mmol/L (21-25)
[2019-04-02 02:40] LABS: ARTERIAL BLOOD PCO2 69.5 mmHg (35-45)
[2019-04-02] MEDS: HEPARIN SOD (PORCINE) 5,000 UNIT/ML 1 ML VIAL SUBCUT SCH ×3 (06:13→22:17)
[2019-04-02] MEDS: METHYLPREDNISOLONE INJ 125 MG/2 ML SDV IV SCH ×3 (06:13→22:25)
[2019-04-02 06:21] LABS: ANION GAP 5 (5-19); BLOOD UREA NITROGEN 17 mg/dL (7-20); CALCIUM 9.2 mg/dL (8.4-10.2); CARBON DIOXIDE 34 mmol/L (22-30); CHLORIDE 96 mmol/L (98-107); GLUCOSE 125 mg/dL (75-110); POTASSIUM 4.8 mmol/L (3.6-5.0)
[2019-04-02 06:51] LABS: HEMATOCRIT 41.2 % (36.0-47.0); HEMOGLOBIN 13.8 g/dL (12.0-15.5); MEAN CORPUSCULAR HEMOGLOBIN 28.3 pg (27.0-33.4); MEAN CORPUSCULAR HGB CONC 33.5 g/dL (32.0-36.0); MEAN CORPUSCULAR VOLUME 85 fl (80-97); RED BLOOD COUNT 4.88 10^6/uL (3.72-5.28); RED CELL DISTRIBUTION WIDTH 16.8 % (11.5-14.0); WHITE BLOOD COUNT 8.3 10^3/uL (4.0-10.5)
[2019-04-02 07:26] LABS: PLATELET COUNT 120 10^3/uL (150-450)
[2019-04-02 07:30] LABS: ARTERIAL BLOOD BASE EXCESS 10.8 mmol/L; ARTERIAL BLOOD H2CO3 2.17 mmol/L (1.05-1.35); ARTERIAL BLOOD HCO3 39.1 mmol/L (20-24); ARTERIAL BLOOD O2 SATURATION 87.8 % (94-98); ARTERIAL BLOOD PH 7.35 (7.35-7.45); ARTERIAL BLOOD PO2 58.3 mmHg (80-100); ARTERIAL BLOOD TOTAL CO2 41.3 mmol/L (21-25)
[2019-04-02 07:37] LABS: ARTERIAL BLOOD FIO2 30%
[2019-04-02 07:39] LABS: ARTERIAL BLOOD PCO2 72.2 mmHg (35-45)
[2019-04-02] MEDS: DOXYCYCLINE HYCLATE 100 MG in DEXTROSE 5%-WATER 250 ML IV SCH ×2 (11:39→22:28)
--- NOTE | 2019-04-02 13:53 | PDOC PROGRESS REPORT ---
Subjective Progress Note for:: 04/02/19 Subjective:: No adverse events overnight. She says her breathing feels a lot better today. On her blood gas her PCO2 is elevated but her pH is normal so I suspect she is probably not too far off of her baseline. She wants to try to eat something today. Reason For Visit: ACUTE ON CHRONIC RESPIRATORY FAILURE,AECOPD Physical Exam Vital Signs: Temp Pulse Resp BP Pulse Ox 99.3 F 106 H 24 H 148/74 H 96 04/02/19 11:55 04/02/19 11:55 04/02/19 12:40 04/02/19 11:55 04/02/19 12:40 Intake & Output 04/01/19 04/02/19 04/03/19 06:59 06:59 06:59 Intake Total 440 Output Total 300 Balance 140 Weight 81.2 kg General appearance: PRESENT: no acute distress, cooperative, disheveled Respiratory exam: PRESENT: decreased breath sounds, symmetrical, unlabored. ABSENT: accessory muscle use, prolonged expiratory phas, rales, retraction, rhonchi, tachypnea, wheezes Cardiovascular exam: PRESENT: tachycardia Pulses: PRESENT: normal carotid pulses Vascular exam: PRESENT: normal capillary refill GI/Abdominal exam: PRESENT: normal bowel sounds, soft. ABSENT: distended, guarding, rebound, tenderness Extremities exam: ABSENT: clubbing, pedal edema Musculoskeletal exam: PRESENT: normal inspection. ABSENT: deformity Neurological exam: PRESENT: alert, awake, oriented to person, oriented to place, oriented to situation Psychiatric exam: PRESENT: appropriate affect, normal mood Skin exam: PRESENT: dry, warm Results Laboratory Results: 04/02/19 04:57 04/02/19 04:57 04/01/19 04/01/19 04/01/19 13:15 13:15 19:52 WBC 11.1 H RBC 4.52 Hgb 12.8 Hct 38.8 MCV 86 MCH 28.3 MCHC 33.0 RDW 16.6 H Plt Count 283 Seg Neutrophils % 74.8 Carbonic Acid 2.34 H HCO3/H2CO3 Ratio 16:1 ABG pH 7.32 L ABG pCO2 77.9 H* ABG pO2 64.9 L ABG HCO3 39.4 H ABG O2 Saturation 90.0 L ABG Base Excess 10.5 FiO2 35% Sodium 136.5 L Potassium 4.9 Chloride 92 L Carbon Dioxide 40 H* Anion Gap 5 BUN 10 Creatinine 0.76 Est GFR ( Amer) > 60 Glucose 108 Calcium 9.2 Total Bilirubin 0.3 AST 21 Alkaline Phosphatase 107 Total Protein 7.5 Albumin 4.1 Urine Color Urine Appearance Urine pH Ur Specific [place] Urine Protein Urine Glucose (UA) Urine Ketones Urine Blood Urine Nitrite Ur Leukocyte Esterase Urine WBC (Auto) Urine RBC (Auto) 04/01/19 04/02/19 04/02/19 22:50 01:20 01:50 WBC RBC Hgb Hct MCV MCH MCHC RDW Plt Count Seg Neutrophils % Carbonic Acid 2.13 H 2.09 H HCO3/H2CO3 Ratio 16:1 17:1 ABG pH 7.32 L 7.34 L ABG pCO2 70.8 H* 69.5 H* ABG pO2 72.9 L 151.6 H ABG HCO3 35.3 H 36.7 H ABG O2 Saturation 92.8 L 98.8 H ABG Base Excess 6.9 8.7 FiO2 35% 35% Sodium Potassium Chloride Carbon Dioxide Anion Gap BUN Creatinine Est GFR ( Amer) Glucose Calcium Total Bilirubin AST Alkaline Phosphatase Total Protein Albumin Urine Color YELLOW Urine Appearance SLIGHTLY-CLOUDY Urine pH 6.0 Ur Specific [place] 1.019 Urine Protein 100 H Urine Glucose (UA) NEGATIVE Urine Ketones 20 H Urine Blood NEGATIVE Urine Nitrite NEGATIVE Ur Leukocyte Esterase SMALL H Urine WBC (Auto) 14 Urine RBC (Auto) 3 04/02/19 04/02/19 04/02/19 04:57 04:57 07:18 WBC 8.3 RBC 4.88 Hgb 13.8 Hct 41.2 MCV 85 MCH 28.3 MCHC 33.5 RDW 16.8 H Plt Count 120 L Seg Neutrophils % Carbonic Acid 2.17 H HCO3/H2CO3 Ratio 18:1 ABG pH 7.35 ABG pCO2 72.2 H* ABG pO2 58.3 L ABG HCO3 39.1 H ABG O2 Saturation 87.8 L ABG Base Excess 10.8 FiO2 30% Sodium 134.6 L Potassium 4.8 Chloride 96 L Carbon Dioxide 34 H Anion Gap 5 BUN 17 Creatinine 0.66 Est GFR ( Amer) > 60 Glucose 125 H Calcium 9.2 Total Bilirubin AST Alkaline Phosphatase Total Protein Albumin Urine Color Urine Appearance Urine pH Ur Specific [place] Urine Protein Urine Glucose (UA) Urine Ketones Urine Blood Urine Nitrite Ur Leukocyte Esterase Urine WBC (Auto) Urine RBC (Auto) 04/01/19 04/01/19 13:15 13:15 Creatine Kinase 58 CK-MB (CK-2) 4.49 Troponin I 0.027 NT-Pro-B Natriuret Pep 346 H Impressions: Chest X-Ray 04/01/19 13:27 IMPRESSION: COPD. Chronic blunting of the left CP angle. No acute findings. Assessment and Plan - Diagnosis (1) Acute exacerbation of chronic obstructive pulmonary disease (COPD) Is this a current diagnosis for this admission?: Yes Plan: We will continue with steroids and bronchodilators and supplemental O2, along with doxycycline. She is showing signs of responding. Her breathing is a lot m ore comfortable now. (2) Acute and chronic respiratory failure ([id number]) Qualifiers: Respiratory failure complication: hypoxia and hypercapnia Qualified Code(s): J96.21 - Acute and chronic respiratory failure with hypoxia; J96.22 - Acute and chronic respiratory failure with hypercapnia Is this a current diagnosis for this admission?: Yes Plan: She is oxygen dependent and a chronic CO2 retainer. As previously noted, PCO2 is elevated but her pH is normal and she is compensated, and I suspect that she is probably not too far from baseline in that regard. Were going to trial her off BiPAP to see how she responds. - Time Time Spent with patient: 15-24 minutes
[2019-04-02] MEDS: DILTIAZEM HCL 120 MG CAP.SR.24H PO SCH (15:36)
[2019-04-02] MEDS: ZIPRASIDONE HCL 40 MG CAPSULE PO SCH (15:37)
[2019-04-02] MEDS ORDERED: ZIPRASIDONE HCL 80 MG PO SCH (16:00)
[2019-04-02] MEDS: RINGERS SOLUTION,LACTATED 1,000 ML IV PRN (17:50)
[2019-04-02] MEDS ORDERED: MAGNESIUM HYDROXIDE SUSP 30 ML UDCUP PO PRN (20:59)
[2019-04-02] MEDS ORDERED: MAG HYDROX/AL HYDROX/SIMETH SUSP 30 ML UDCUP PO PRN (20:59)
[2019-04-02] MEDS ORDERED: FAMOTIDINE 20 MG TABLET PO SCH (22:00)
--- NOTE | 2019-04-02 23:15 | EKG REPORT ---
SEVERITY:- ABNORMAL ECG - SINUS TACHYCARDIA ATRIAL PREMATURE COMPLEX MINIMAL ST DEPRESSION, INFERIOR LEADS : Confirmed by: Joe Tam 02-Apr-2019 23:14:49
--- NOTE | 2019-04-02 23:24 | Progress Note ---
Provider Note Provider Note: Critical care note: 04/02/2019 Critical care start time: 21:03 Critical care issue: Severe heartburn with nausea and emesis I was requested to see the patient for evaluation of a new problem of severe heartburn with anterior chest and upper abdominal discomfort and a small volume of brownish emesis. Patient was treated with antiacids prior to my arrival and had decreased heartburn but had continued to produce small amount of emesis that continue to be over brownish nature but had not yet been tested for occult blood. Patient indicates that her discomfort is mostly improved but is concerned about her continued emesis and the upper abdominal pressure which has replaced the burning sensation in her upper abdomen and chest. On exam chest shows mild wheezes and good air movement with a minimally prolonged expiratory phase in all ayon. Heart shows a regular rate and rhythm without murmurs. Abdomen is tightly distended and mildly tender to palpation in the epigastric region and bilateral upper quadrants. Bowel sounds are extremely hypoactive/absent. I discussed the problem with the patient and we have agreed that we will do an EKG and cardiac enzymes as well as a KUB x-ray of her abdomen. We have discussed the possibility of needing to use a nasogastric tube to alleviate the pressure in her abdomen and help to eliminate the nausea and vomiting. She has consented to the above plan. The KUB x-ray showed significant gastric distention and an NG tube will be placed. EKG showed a mild sinus tachycardia without evidence of cardiac ischemia or injury. Serial cardiac enzymes are still pending. A volume of greater than 800 mL of guaiac positive dark brownish emesis was removed with the insertion of the NG tube and the patient's abdominal discomfort was relieved. NG tube will be continued at low intermittent Goo suction. Critical care end time: 03:29 Total critical care time: 26 minutes
[2019-04-02] MEDS ORDERED: PHARMACY COMMUNICATION ORDER MC NR (23:30)
--- NOTE | 2019-04-02 23:37 | RADIOLOGY REPORT (SQ) ---
EXAM DESCRIPTION: Portable supine view of the abdomen CLINICAL HISTORY: 63 years Female, vomiting; abdominal distention COMPARISON: None. FINDINGS: The stomach is markedly distended with air. There are multiple air-filled loops of bowel seen throughout the abdomen. This appears to predominantly be colon but there is some air in the small bowel. There is a small amount of stool in the left colon. Vascular calcifications. Bone mineralization is diminished. IMPRESSION: Distention of the stomach as well as scattered small and large bowel loops with air. Findings are nonspecific but suggestive of ileus.
[2019-04-03] MEDS ORDERED: LORAZEPAM INJ 2 MG/1 ML VIAL ONE (00:03)
[2019-04-03] MEDS ORDERED: LORAZEPAM INJ 2 MG/1 ML VIAL IV ONE (00:45)
[2019-04-03 00:54] LABS: CREATINE KINASE MB 5.82 ng/mL (<4.55); TROPONIN I 0.027 ng/mL
--- NOTE | 2019-04-03 01:50 | RADIOLOGY REPORT (SQ) ---
EXAM DESCRIPTION: XR ABDOMEN 1 VIEW (KUB) COMPLETED DATE/TME: 04/02/2019 23:24 CLINICAL HISTORY: 63 years, Female, Check Placement of NG Tube COMPARISON: 04/02/2019 abdomen NUMBER OF VIEWS: Portable abdomen TECHNIQUE: Single portable abdomen LIMITATIONS: None. FINDINGS: Tip of the enteric tube in the stomach. Mild gaseous distention of the stomach. No free air. Small left effusion. IMPRESSION: Tip of the enteric tube in the stomach copyright 2010 [employer]- All Rights Reserved
[2019-04-03] MEDS: IPRATROPIUM/ALBUTEROL 0.5-2.5 MG/3 ML AMPUL NEB SCH ×4 (02:23→20:47)
[2019-04-03] MEDS ORDERED: MAG HYDROX/AL HYDROX/SIMETH SUSP 30 ML UDCUP NG PRN (03:06)
[2019-04-03] MEDS ORDERED: MAGNESIUM HYDROXIDE SUSP 30 ML UDCUP NG PRN (03:06)
[2019-04-03] MEDS: METHYLPREDNISOLONE INJ 125 MG/2 ML SDV IV SCH ×3 (06:10→21:25)
[2019-04-03 07:23] LABS: MEAN CORPUSCULAR HEMOGLOBIN 27.9 pg (27.0-33.4); MEAN CORPUSCULAR HGB CONC 33.2 g/dL (32.0-36.0); MEAN CORPUSCULAR VOLUME 84 fl (80-97); PLATELET COUNT 238 10^3/uL (150-450); RED BLOOD COUNT 4.15 10^6/uL (3.72-5.28); RED CELL DISTRIBUTION WIDTH 16.3 % (11.5-14.0); WHITE BLOOD COUNT 11.5 10^3/uL (4.0-10.5)
[2019-04-03 07:35] LABS: HEMOGLOBIN 11.6 g/dL (12.0-15.5)
[2019-04-03 07:47] LABS: BLOOD UREA NITROGEN 29 mg/dL (7-20); CALCIUM 8.9 mg/dL (8.4-10.2); CHLORIDE 90 mmol/L (98-107); CREATINE KINASE 137 U/L (30-135); GLUCOSE 120 mg/dL (75-110); POTASSIUM 4.3 mmol/L (3.6-5.0)
[2019-04-03 08:03] LABS: CREATINE KINASE MB 11.3 ng/mL (<4.55)
[2019-04-03 08:04] LABS: ANION GAP 6 (5-19)
[2019-04-03 08:07] LABS: CARBON DIOXIDE 41 mmol/L (22-30); TROPONIN I 0.04 ng/mL
[2019-04-03] MEDS: HEPARIN SOD (PORCINE) 5,000 UNIT/ML 1 ML VIAL SUBCUT SCH ×3 (09:47→21:25)
[2019-04-03] MEDS: FLUTICASONE/VILANTEROL 200-25 MCG/DOSE IH SCH (09:48)
[2019-04-03] MEDS: DOXYCYCLINE HYCLATE 100 MG in DEXTROSE 5%-WATER 250 ML IV SCH ×2 (09:48→21:26)
[2019-04-03] MEDS ORDERED: (PENDING PHARMACY ID) (Duloxetine Hcl [Cymbalta] 30 MG) PO SCH (10:00)
[2019-04-03] MEDS: ZIPRASIDONE HCL 40 MG CAPSULE PO SCH ×2 (11:32→17:19)
[2019-04-03] MEDS: DILTIAZEM HCL 120 MG CAP.SR.24H PO SCH (11:32)
[2019-04-03] MEDS: DULOXETINE HCL 30 MG CAPSULE.DR PO SCH (11:33)
[2019-04-03] MEDS: FAMOTIDINE 20 MG TABLET NG SCH ×2 (11:37→21:25)
[2019-04-03 12:54] LABS: CREATINE KINASE MB 8.91 ng/mL (<4.55); TROPONIN I 0.03 ng/mL
[2019-04-03] MEDS: RINGERS SOLUTION,LACTATED 1,000 ML IV PRN (15:57)
--- NOTE | 2019-04-03 17:11 | PDOC PROGRESS REPORT ---
Subjective Progress Note for:: 04/03/19 Subjective:: She began to have a lot of abdominal distention last night and an NG tube was put in place. She is been on the nasal cannula and has been doing fine off BiPAP. She states she is feeling a lot better breathing a lot better. Reason For Visit: ACUTE ON CHRONIC RESPIRATORY FAILURE,AECOPD Physical Exam Vital Signs: Temp Pulse Resp BP Pulse Ox 98.6 F 99 18 141/72 H 91 L 04/03/19 15:36 04/03/19 15:36 04/03/19 15:36 04/03/19 15:36 04/03/19 15:36 Intake & Output 04/02/19 04/03/19 04/04/19 06:59 06:59 06:59 Intake Total 440 2017 998 Output Total 300 2075 450 Balance 140 -58 548 Weight 81.2 kg General appearance: PRESENT: no acute distress, cooperative, disheveled Respiratory exam: PRESENT: decreased breath sounds, symmetrical, unlabored. ABSENT: accessory muscle use, prolonged expiratory phas, rales, retraction, rhonchi, tachypnea, wheezes Cardiovascular exam: PRESENT: tachycardia Pulses: PRESENT: normal carotid pulses Vascular exam: PRESENT: normal capillary refill GI/Abdominal exam: PRESENT: Distended, tympanic. ABSENT: guarding, rebound, tenderness Extremities exam: ABSENT: clubbing, pedal edema Musculoskeletal exam: PRESENT: normal inspection. ABSENT: deformity Neurological exam: PRESENT: alert, awake, oriented to person, oriented to place, oriented to situation Psychiatric exam: PRESENT: appropriate affect, normal mood Skin exam: PRESENT: dry, warm Results Laboratory Results: 04/03/19 06:16 04/03/19 06:16 04/03/19 04/03/19 06:16 06:16 WBC 11.5 H RBC 4.15 Hgb 11.6 L D Hct 35.0 L MCV 84 MCH 27.9 MCHC 33.2 RDW 16.3 H Plt Count 238 Sodium 137.2 Potassium 4.3 Chloride 90 L Carbon Dioxide 41 H* Anion Gap 6 BUN 29 H Creatinine 0.84 Est GFR ( Amer) > 60 Glucose 120 H Calcium 8.9 04/01/19 04/01/19 04/03/19 13:15 13:15 00:01 Creatine Kinase 58 74 CK-MB (CK-2) 4.49 Troponin I 0.027 NT-Pro-B Natriuret Pep 346 H 04/03/19 04/03/19 04/03/19 00:01 06:16 06:16 Creatine Kinase 137 H CK-MB (CK-2) 5.82 H 11.30 H Troponin I 0.027 0.040 NT-Pro-B Natriuret Pep 04/03/19 04/03/19 11:47 11:47 Creatine Kinase 98 CK-MB (CK-2) 8.91 H Troponin I 0.030 NT-Pro-B Natriuret Pep Impressions: Chest X-Ray 04/01/19 13:27 IMPRESSION: COPD. Chronic blunting of the left CP angle. No acute findings. KUB X-Ray 04/02/19 23:24 IMPRESSION: Tip of the enteric tube in the stomach copyright 2011 [employer]- All Rights Reserved Assessment and Plan - Diagnosis (1) Acute exacerbation of chronic obstructive pulmonary disease (COPD) Is this a current diagnosis for this admission?: Yes Plan: Transition her off the nasal cannula. Will de-escalate her steroids. Continue with PRN bronchodilators. (2) Acute and chronic respiratory failure ([id number]) Qualifiers: Respiratory failure complication: hypoxia and hypercapnia Qualified Code(s): J96.21 - Acute and chronic respiratory failure with hypoxia; J96.22 - Acute and chronic respiratory failure with hypercapnia Is this a current diagnosis for this admission?: Yes Plan: Currently stable on her usual level of home O2 support. (3) Abdominal distention Is this a current diagnosis for this admission?: Yes Plan: I think she just swallowed a lot of air from the BiPAP. NG tube was put in and some liquid came out but she still had a lot of air left in there. We have let it run through the day and we just repeated a KUB which shows that she has had a substantial decrease in gaseous distention. We will clamp the tube and start her on some clear liquids to see how she tolerates. - Time Time Spent with patient: 25-34 minutes
--- NOTE | 2019-04-03 19:16 | RADIOLOGY REPORT (SQ) ---
EXAM DESCRIPTION: KUB/ABDOMEN (SINGLE VIEW) COMPLETED DATE/TIME: 04/03/2019 5:55 pm REASON FOR STUDY: re-evaluate abdominal distention COMPARISON: 04/03/2019 NUMBER OF VIEWS: One view. TECHNIQUE: Supine radiographic image of the abdomen acquired. LIMITATIONS: None. FINDINGS: BOWEL GAS PATTERN: Gas-filled stomach and mildly distended bowel. CALCIFICATIONS: No suspicious calcifications. SOFT TISSUES: No gross mass or suggestion of organomegaly. HARDWARE: The NG tube appears to have been slightly withdrawn and is just inside the stomach. BONES: No acute fracture. No worrisome bone lesions. OTHER: No other significant finding. IMPRESSION: NG tube as described. There is still distention of the stomach and proximal bowel diste ntion. TECHNICAL DOCUMENTATION: JOB ID: [id number] 2010 [employer]- All Rights Reserved Reading location - IP/workstation name: [email or web address]
[2019-04-04] MEDS: IPRATROPIUM/ALBUTEROL 0.5-2.5 MG/3 ML AMPUL NEB SCH ×4 (01:50→19:52)
[2019-04-04 05:38] LABS: HEMATOCRIT 36.1 % (36.0-47.0); MEAN CORPUSCULAR HEMOGLOBIN 28.1 pg (27.0-33.4); MEAN CORPUSCULAR HGB CONC 33.2 g/dL (32.0-36.0); MEAN CORPUSCULAR VOLUME 85 fl (80-97); PLATELET COUNT 248 10^3/uL (150-450); RED BLOOD COUNT 4.26 10^6/uL (3.72-5.28); RED CELL DISTRIBUTION WIDTH 16.7 % (11.5-14.0); WHITE BLOOD COUNT 11.4 10^3/uL (4.0-10.5)
[2019-04-04 06:06] LABS: BLOOD UREA NITROGEN 31 mg/dL (7-20); CHLORIDE 92 mmol/L (98-107); GLUCOSE 113 mg/dL (75-110); POTASSIUM 4.4 mmol/L (3.6-5.0)
[2019-04-04 06:13] LABS: ANION GAP 9 (5-19)
[2019-04-04 06:21] LABS: CARBON DIOXIDE 39 mmol/L (22-30)
[2019-04-04] MEDS: METHYLPREDNISOLONE INJ 125 MG/2 ML SDV IV SCH ×3 (06:28→22:22)
[2019-04-04] MEDS: HEPARIN SOD (PORCINE) 5,000 UNIT/ML 1 ML VIAL SUBCUT SCH ×3 (06:28→22:21)
[2019-04-04 07:59] LABS: ARTERIAL BLOOD BASE EXCESS 13.3 mmol/L; ARTERIAL BLOOD H2CO3 2.35 mmol/L (1.05-1.35); ARTERIAL BLOOD HCO3 42.2 mmol/L (20-24); ARTERIAL BLOOD O2 SATURATION 89.2 % (94-98); ARTERIAL BLOOD PH 7.35 (7.35-7.45); ARTERIAL BLOOD PO2 61.4 mmHg (80-100); ARTERIAL BLOOD TOTAL CO2 44.6 mmol/L (21-25)
[2019-04-04 08:02] LABS: ARTERIAL BLOOD FIO2 32%
[2019-04-04 08:03] LABS: ARTERIAL BLOOD PCO2 78.1 mmHg (35-45)
[2019-04-04] MEDS: ZIPRASIDONE HCL 40 MG CAPSULE PO SCH ×2 (08:17→17:55)
[2019-04-04] MEDS: ALBUTEROL SULFATE 0.083% NEB 2.5 MG/3 ML AMPUL NEB PRN (08:24)
[2019-04-04] MEDS: DULOXETINE HCL 30 MG CAPSULE.DR PO SCH (09:00)
[2019-04-04] MEDS: FLUTICASONE/VILANTEROL 200-25 MCG/DOSE IH SCH (09:30)
[2019-04-04] MEDS: DOXYCYCLINE HYCLATE 100 MG in DEXTROSE 5%-WATER 250 ML IV SCH ×2 (10:00→21:53)
--- NOTE | 2019-04-04 11:08 | RADIOLOGY REPORT (SQ) ---
EXAM DESCRIPTION: CT ABD/PELVIS NO ORAL OR IV COMPLETED DATE/TIME: 04/04/2019 10:32 am REASON FOR STUDY: worsening dyspnea; ileus COMPARISON: None. TECHNIQUE: CT scan of the abdomen and pelvis performed without intravenous or oral contrast. Images reviewed with lung, soft tissue, and bone windows. Reconstructed coronal and sagittal MPR images revi ewed. All images stored on PACS. All CT scanners at this facility use dose modulation, iterative reconstruction, and/or weight based d osing when appropriate to reduce radiation dose to as low as reasonably achievable (ALARA). [facility]: Dose Right [facility]: CareDose [facility]: Dose Right [facility]: Teradose 4D [facility]: Intellinote RADIATION DOSE: mGy. LIMITATIONS: None. FINDINGS: LOWER CHEST: See separate report of the CT of the chest. NON-CONTRASTED LIVER, SPLEEN, ADRENALS: Evaluation limited by lack of IV contrast. No identified sign ificant masses. PANCREAS: No masses. No peripancreatic inflammatory changes. GALLBLADDER: Gallstones. No inflammatory changes to suggest cholecystitis. RIGHT KIDNEY AND URETER: No suspicious masses. Assessment limited by lack of IV contrast. No signif icant calcifications. No hydronephrosis or hydroureter. LEFT KIDNEY AND URETER: No suspicious masses. Assessment limited by lack of IV contrast. No signifi cant calcifications. No hydronephrosis or hydroureter. AORTA AND RETROPERITONEUM: No aneurysm. No retroperitoneal masses or adenopathy. BOWEL AND PERITONEAL CAVITY: Distended gas-filled stomach. Nasogastric tube with the tip in the stom ach. No obvious masses or inflammatory changes. No free fluid. APPENDIX: Not visualized. PELVIS, BLADDER, AND ABDOMINAL WALL:No abnormal masses. No free fluid. Bladder normal. BONES: No significant findings. OTHER: No other significant finding. IMPRESSION: 1. DISTENDED GAS-FILLED STOMACH. MAY BE DUE TO GASTROPARESIS ALTHOUGH CANNOT EXCLUDE GASTRIC OUTLET OBSTRUCTION. NO SIGNIFICANT BOWEL DILATION. 2. GALLSTONES. 3. NO OTHER SIGNIFICANT OR ACUTE PROCESS IN THE ABDOMEN OR PELVIS. COMMENT: Quality ID # [id number]: Final reports with documentation of one or more dose reduction techniques (e.g., Automated exposure control, adjustment of the mA and/or kV according to patient size, use of iterative reconstruction technique) TECHNICAL DOCUMENTATION: JOB ID: [id number] [address] [employer]- All Rights Reserved Reading location - IP/workstation name: [email or web address]
--- NOTE | 2019-04-04 11:14 | RADIOLOGY REPORT (SQ) ---
EXAM DESCRIPTION: CT CHEST WITHOUT COMPLETED DATE/TIME: 04/04/2019 10:30 am REASON FOR STUDY: worsening dyspnea; ileus COMPARISON: 09/05/2018. TECHNIQUE: CT scan performed of the chest without intravenous contrast. Images reviewed with lung, soft tissue and bone windows. Reconstructed coronal and sagittal MPR images reviewed. All images st ored on PACS. All CT scanners at this facility use dose modulation, iterative reconstruction, and/or weight based d osing when appropriate to reduce radiation dose to as low as reasonably achievable (ALARA). [facility]: Dose Right [facility]: CareDose [facility]: Dose Right [facility]: Teradose 4D [facility]: [employer] RADIATION DOSE: CT Rad equipment meets quality standard of care and radiation dose reduction techniq ues were employed. CTDIvol: 6.1 - 7.3 mGy. DLP: 651 mGy-cm. mGy. LIMITATIONS: No technical limitations. FINDINGS: LUNGS AND PLEURA: Emphysematous changes. Chronic scarring. No masses, infiltrates, or pn eumothorax. Chronic blunting of the left costophrenic angle. No pleural effusions or pleural calcif ications. HILAR AND MEDIASTINAL STRUCTURES: No identified masses or abnormal nodes. No obvious aneurysm. HEART AND VASCULAR STRUCTURES: No aneurysm. No pericardial effusion. UPPER ABDOMEN: See separate report of the CT of the abdomen. THYROID AND OTHER SOFT TISSUES: No masses. No adenopathy. BONES: No significant finding. HARDWARE: Nasogastric tube, tip in the stomach. OTHER: No other significant findings. IMPRESSION: EMPHYSEMATOUS CHANGES WITH CHRONIC SCARRING. NO ACUTE FINDING ON NON-CONTRASTED CHEST C T. TECHNICAL DOCUMENTATION: JOB ID: [id number] Quality ID # [id number]: Final reports with documentation of one or more dose reduction techniques (e.g., Au tomated exposure control, adjustment of the mA and/or kV according to patient size, use of iterative reconstruction technique) 2010 [employer]- All Rights Reserved Reading location - IP/workstation name: [facility]
[2019-04-04] MEDS: DILTIAZEM HCL 120 MG CAP.SR.24H PO SCH (13:37)
[2019-04-04] MEDS: FAMOTIDINE 20 MG TABLET NG SCH (13:37)
[2019-04-04 17:16] LABS: ARTERIAL BLOOD BASE EXCESS 13.7 mmol/L; ARTERIAL BLOOD H2CO3 2.33 mmol/L (1.05-1.35); ARTERIAL BLOOD HCO3 42.5 mmol/L (20-24); ARTERIAL BLOOD O2 SATURATION 95.7 % (94-98); ARTERIAL BLOOD PH 7.36 (7.35-7.45); ARTERIAL BLOOD PO2 86.5 mmHg (80-100); ARTERIAL BLOOD TOTAL CO2 44.9 mmol/L (21-25)
[2019-04-04 17:17] LABS: ARTERIAL BLOOD FIO2 40%; ARTERIAL BLOOD PCO2 77.3 mmHg (35-45)
[2019-04-04] MEDS: RINGERS SOLUTION,LACTATED 1,000 ML IV PRN (18:41)
--- NOTE | 2019-04-04 20:16 | PDOC PROGRESS REPORT ---
Subjective Progress Note for:: 04/04/19 Subjective:: The patient was seen on morning rounds with her present and then again in the afternoon. She was found resting in bed, comfortably, on BiPAP at each visit. She has an NG tube in place to low wall suction with clear, pink-tinged, fluid in the canister. Patient denies abdominal discomfort, nausea or vomiting. She reports that her breathing is significantly better while on BiPAP but does continue to have shortness of breath. She denies continued productive cough. She further denies fever, chills, chest pain, palpitations. Clinical progress and plan of care discussed with patient, family, and nursing throughout the day. Questions and concerns addressed. Reason For Visit: ACUTE ON CHRONIC RESPIRATORY FAILURE,AECOPD Physical Exam Vital Signs: Temp Pulse Resp BP Pulse Ox 97.8 F 77 22 H 135/79 H 100 04/04/19 15:55 04/04/19 19:52 04/04/19 19:52 04/04/19 15:55 04/04/19 19:52 Intake & Output 04/03/19 04/04/19 04/05/19 06:59 06:59 06:59 Intake Total 2016 1529 1669 Output Total 2074 1150 635 Balance -58 379 1034 Weight 81.7 kg General appearance: PRESENT: no acute distress, cooperative, disheveled, well- developed, well-nourished Head exam: PRESENT: atraumatic, normocephalic Eye exam: PRESENT: conjunctiva pink, EOMI, PERRLA. ABSENT: scleral icterus Mouth exam: PRESENT: moist, tongue midline Teeth exam: PRESENT: poor dentation Respiratory exam: PRESENT: prolonged expiratory phas, rhonchi, symmetrical, unlabored, other - BiPAP. ABSENT: rales, wheezes Cardiovascular exam: PRESENT: RRR, +S1, +S2. ABSENT: diastolic murmur, rubs, systolic murmur Pulses: PRESENT: normal dorsalis pedis pul Vascular exam: PRESENT: normal capillary refill GI/Abdominal exam: PRESENT: distended, hypoactive bowel sounds, soft, other - NG tube. ABSENT: guarding, mass, organolmegaly, rebound, tenderness Rectal exam: PRESENT: deferred Extremities exam: PRESENT: full ROM. ABSENT: calf tenderness, clubbing, pedal edema Neurological exam: PRESENT: alert, awake, oriented to person, oriented to place, oriented to time, oriented to situation, CN II-XII grossly intact. ABSENT: motor sensory deficit Psychiatric exam: PRESENT: anxious, appropriate affect, normal mood. ABSENT: h omicidal ideation, suicidal ideation Skin exam: PRESENT: dry, intact, warm. ABSENT: cyanosis, rash Results Laboratory Results: 04/04/19 04:11 04/04/19 04:11 04/04/19 04/04/19 04/04/19 04:11 04:11 07:45 WBC 11.4 H RBC 4.26 Hgb 12.0 Hct 36.1 MCV 85 MCH 28.1 MCHC 33.2 RDW 16.7 H Plt Count 248 Carbonic Acid 2.35 H HCO3/H2CO3 Ratio 17:1 ABG pH 7.35 ABG pCO2 78.1 H* ABG pO2 61.4 L ABG HCO3 42.2 H ABG O2 Saturation 89.2 L ABG Base Excess 13.3 FiO2 32% Sodium 139.7 Potassium 4.4 Chloride 92 L Carbon Dioxide 39 H Anion Gap 9 BUN 31 H Creatinine 0.79 Est GFR ( Amer) > 60 Glucose 113 H Calcium 9.0 04/04/19 04/04/19 16:20 17:00 WBC RBC Hgb Hct MCV MCH MCHC RDW Plt Count Carbonic Acid Cancelled 2.33 H HCO3/H2CO3 Ratio Cancelled 18:1 ABG pH Cancelled 7.36 ABG pCO2 Cancelled 77.3 H* ABG pO2 Cancelled 86.5 ABG HCO3 Cancelled 42.5 H ABG O2 Saturation Cancelled 95.7 ABG Base Excess Cancelled 13.7 FiO2 Cancelled 40% Sodium Potassium Chloride Carbon Dioxide Anion Gap BUN Creatinine Est GFR ( Amer) Glucose Calcium 04/01/19 04/01/19 04/03/19 13:15 13:15 00:01 Creatine Kinase 58 74 CK-MB (CK-2) 4.49 Troponin I 0.027 NT-Pro-B Natriuret Pep 346 H 04/03/19 04/03/19 04/03/19 00:01 06:16 06:16 Creatine Kinase 137 H CK-MB (CK-2) 5.82 H 11.30 H Troponin I 0.027 0.040 NT-Pro-B Natriuret Pep 04/03/19 04/03/19 11:47 11:47 Creatine Kinase 98 CK-MB (CK-2) 8.91 H Troponin I 0.030 NT-Pro-B Natriuret Pep Impressions: Chest X-Ray 04/01/19 13:27 IMPRESSION: COPD. Chronic blunting of the left CP angle. No acute findings. KUB X-Ray 04/03/19 00:00 IMPRESSION: NG tube as described. There is still distention of the stomach and proximal bowel distention. Abdomen/Pelvis CT 04/04/19 00:00 IMPRESSION: 1. DISTENDED GAS-FILLED STOMACH. MAY BE DUE TO GASTROPARESIS ALTHOUGH CANNOT EXCLUDE GASTRIC OUTLET OBSTRUCTION. NO SIGNIFICANT BOWEL DILATION. 2. GALLSTONES. 3. NO OTHER SIGNIFICANT OR ACUTE PROCESS IN THE ABDOMEN OR PELVIS. Chest CT 04/04/19 00:00 IMPRESSION: EMPHYSEMATOUS CHANGES WITH CHRONIC SCARRING. NO ACUTE FINDING ON NON-CONTRASTED CHEST CT. Assessment and Plan - Diagnosis (1) Acute exacerbation of chronic obstructive pulmonary disease (COPD) Is this a current diagnosis for this admission?: Yes Plan: Patient is admitted to [facility] on continuous cardiac telemetry. ABG revealed worsening hypercapnia and hypoxia. Slightly improved following BiPAP adjustments. CT chest was negative for acute finding; does demonstrate emphysema. We will continue supplemental oxygen and BiPAP as needed to maintain saturations . Continue scheduled and as needed nebulizer treatments. Continue IV Solu-Medrol. Patient is empirically been placed on IV doxycycline for acute bronchitis. Mucinex twice daily. Singulair nightly Incentive spirometer and flutter valve when off BiPAP. Tomorrow, will begin to attempt intermittent BiPAP use. Will benefit from pulmonology consultation. We will reach out to Dr. Artis tomorrow to see if he might be available. (2) Acute and chronic respiratory failure ([id number]) Qualifiers: Respiratory failure complication: hypoxia and hypercapnia Qualified Code(s): J96.21 - Acute and chronic respiratory failure with hypoxia; J96.22 - Acute and chronic respiratory failure with hypercapnia Is this a current diagnosis for this admission?: Yes Plan: Secondary to #1. Evaluation management as above. (3) Abdominal distention Is this a current diagnosis for this admission?: Yes Plan: Gastric distention is secondary to gas r/t BiPAP use. CT ABD/Pelvis showed distended gas-filled stomach possibly due to gastroparesis without significant bowel dilatation. Dr. Nuno kindly reviewed the images; no evidence of obstruction upon his review. Dr. Pastor did come to the bedside and provide an assessment; recommends continuing NG tube to suction with frequent placement checks/flushes to prevent NG malfunction. He also recommends starting on Protonix and Carafate. Patient is placed on twice daily IV Protonix with Carafate every 6 hours. If persist tomorrow, will consider trial of IV Reglan Will wean BiPAP as quickly as possible. (4) Tobacco dependence Is this a current diagnosis for this admission?: Yes Plan: Smoking cessation encouraged. Nicotine replacement therapies provided. (5) Depression Qualifiers: Depression Type: unspecified Qualified Code(s): F32.9 - Major depressive disorder, single episode, unspecified Is this a current diagnosis for this admission?: Yes Plan: Depression with anxiety. Continue home medication regiment of Cymbalta and Geodon. Low-dose IV Ativan as needed for acute anxiety and agitation. - Time Time Spent with patient: 35 or more minutes Medications reviewed and adjusted accordingly: Yes Anticipated discharge: Home
[2019-04-04] MEDS: PANTOPRAZOLE SODIUM 40 MG VIAL IV SCH (22:21)
[2019-04-04] MEDS: GUAIFENESIN 600 MG TABLET.SA PO SCH (22:22)
[2019-04-04] MEDS: MONTELUKAST SODIUM 10 MG TABLET PO SCH (22:22)
[2019-04-04] MEDS: SUCRALFATE 1 GM TABLET PO SCH (23:44)
[2019-04-05] MEDS: IPRATROPIUM/ALBUTEROL 0.5-2.5 MG/3 ML AMPUL NEB SCH ×4 (02:16→20:59)
[2019-04-05 04:59] LABS: HEMATOCRIT 36.2 % (36.0-47.0); HEMOGLOBIN 12.1 g/dL (12.0-15.5); MEAN CORPUSCULAR HEMOGLOBIN 28.5 pg (27.0-33.4); MEAN CORPUSCULAR HGB CONC 33.4 g/dL (32.0-36.0); MEAN CORPUSCULAR VOLUME 85 fl (80-97); PLATELET COUNT 197 10^3/uL (150-450); RED BLOOD COUNT 4.24 10^6/uL (3.72-5.28); RED CELL DISTRIBUTION WIDTH 16.8 % (11.5-14.0); WHITE BLOOD COUNT 9.8 10^3/uL (4.0-10.5)
[2019-04-05 05:20] LABS: BLOOD UREA NITROGEN 27 mg/dL (7-20); CALCIUM 8.8 mg/dL (8.4-10.2); CHLORIDE 90 mmol/L (98-107); GLUCOSE 129 mg/dL (75-110); POTASSIUM 4.1 mmol/L (3.6-5.0)
[2019-04-05 05:34] LABS: ANION GAP 5 (5-19); CARBON DIOXIDE 43 mmol/L (22-30)
[2019-04-05] MEDS: SUCRALFATE 1 GM TABLET PO SCH ×4 (05:52→23:29)
[2019-04-05] MEDS: HEPARIN SOD (PORCINE) 5,000 UNIT/ML 1 ML VIAL SUBCUT SCH ×3 (05:52→22:53)
[2019-04-05] MEDS: METHYLPREDNISOLONE INJ 125 MG/2 ML SDV IV SCH ×3 (05:52→22:51)
[2019-04-05 07:04] LABS: ARTERIAL BLOOD BASE EXCESS 12.6 mmol/L; ARTERIAL BLOOD H2CO3 2.03 mmol/L (1.05-1.35); ARTERIAL BLOOD HCO3 40.3 mmol/L (20-24); ARTERIAL BLOOD O2 SATURATION 89.9 % (94-98); ARTERIAL BLOOD PCO2 67.6 mmHg (35-45); ARTERIAL BLOOD PH 7.39 (7.35-7.45); ARTERIAL BLOOD PO2 60.1 mmHg (80-100); ARTERIAL BLOOD TOTAL CO2 42.4 mmol/L (21-25)
[2019-04-05 07:07] LABS: ARTERIAL BLOOD FIO2 32%
[2019-04-05] MEDS: ALBUTEROL SULFATE 0.083% NEB 2.5 MG/3 ML AMPUL NEB PRN (08:31)
[2019-04-05] MEDS: DILTIAZEM HCL 120 MG CAP.SR.24H PO SCH (09:07)
[2019-04-05] MEDS: ZIPRASIDONE HCL 40 MG CAPSULE PO SCH ×2 (09:07→17:40)
[2019-04-05] MEDS: DOXYCYCLINE HYCLATE 100 MG in DEXTROSE 5%-WATER 250 ML IV SCH ×2 (09:07→22:52)
[2019-04-05] MEDS: GUAIFENESIN 600 MG TABLET.SA PO SCH ×2 (09:07→22:50)
[2019-04-05] MEDS: DULOXETINE HCL 30 MG CAPSULE.DR PO SCH (09:07)
[2019-04-05] MEDS: PANTOPRAZOLE SODIUM 40 MG VIAL IV SCH ×2 (09:07→22:51)
[2019-04-05] MEDS: FLUTICASONE/VILANTEROL 200-25 MCG/DOSE IH SCH (09:10)
[2019-04-05] MEDS: RINGERS SOLUTION,LACTATED 1,000 ML IV PRN (14:39)
--- NOTE | 2019-04-05 19:23 | PDOC PROGRESS REPORT ---
Subjective Progress Note for:: 04/05/19 Subjective:: The patient was seen on morning rounds. She was found resting in bed, comfortably, on supplemental oxygen via nasal cannula. She has an NG tube in place to low wall suction with minimal output today. Patient denies abdominal discomfort, nausea or vomiting; abd distention has resolved. She reports that her breathing is significantly better following AVAPS overnight. She denies continued productive cough. Patient reports she is feeling significantly better today. She further denies fever, chills, chest pain, palpitations. She has no questions or concerns today. No concerns per nursing. Reason For Visit: ACUTE ON CHRONIC RESPIRATORY FAILURE,AECOPD Physical Exam Vital Signs: Temp Pulse Resp BP Pulse Ox 98.7 F 174 H 19 132/63 H 94 04/05/19 15:52 04/05/19 15:52 04/05/19 15:52 04/05/19 15:52 04/05/19 15:52 Intake & Output 04/04/19 04/05/19 04/06/19 06:59 06:59 06:59 Intake Total 1529 2024 3416 Output Total 1150 1635 1500 Balance 099 850 2876 Weight 81.7 kg 83.9 kg General appearance: PRESENT: no acute distress, cooperative, disheveled, well- developed, well-nourished Head exam: PRESENT: atraumatic, normocephalic Eye exam: PRESENT: conjunctiva pink, EOMI, PERRLA. ABSENT: scleral icterus Ear exam: PRESENT: normal external ear exam Mouth exam: PRESENT: moist, tongue midline Teeth exam: PRESENT: poor dentation Respiratory exam: PRESENT: prolonged expiratory phas, rhonchi, symmetrical, unlabored, other - Supplemental oxygen via nasal cannula. ABSENT: rales, wheezes Cardiovascular exam: PRESENT: RRR, +S1, +S2. ABSENT: diastolic murmur, rubs, systolic murmur Pulses: PRESENT: normal dorsalis pedis pul Vascular exam: PRESENT: normal capillary refill GI/Abdominal exam: PRESENT: normal bowel sounds, soft, other - NG tube with minimal output today; no longer distended. ABSENT: distended, guarding, mass, organolmegaly, rebound, tenderness Rectal exam: PRESENT: deferred Extremities exam: PRESENT: full ROM. ABSENT: calf tenderness, clubbing, pedal edema Neurological exam: PRESENT: alert, awake, oriented to person, oriented to place, oriented to time, oriented to situation, CN II-XII grossly intact. ABSENT: motor sensory deficit Psychiatric exam: PRESENT: appropriate affect, normal mood. ABSENT: homicidal ideation, suicidal ideation Skin exam: PRESENT: dry, intact, warm. ABSENT: cyanosis, rash Results Laboratory Results: 04/05/19 03:36 04/05/19 03:36 04/05/19 04/05/19 04/05/19 03:36 03:36 06:47 WBC 9.8 RBC 4.24 Hgb 12.1 Hct 36.2 MCV 85 MCH 28.5 MCHC 33.4 RDW 16.8 H Plt Count 197 Carbonic Acid 2.03 H HCO3/H2CO3 Ratio 19:1 ABG pH 7.39 ABG pCO2 67.6 H ABG pO2 60.1 L ABG HCO3 40.3 H ABG O2 Saturation 89.9 L ABG Base Excess 12.6 FiO2 32% Sodium 137.9 Potassium 4.1 Chloride 90 L Carbon Dioxide 43 H* Anion Gap 5 BUN 27 H Creatinine 0.75 Est GFR ( Amer) > 60 Glucose 129 H Calcium 8.8 04/01/19 04/01/19 04/03/19 13:15 13:15 00:01 Creatine Kinase 58 74 CK-MB (CK-2) 4.49 Troponin I 0.027 NT-Pro-B Natriuret Pep 346 H 04/03/19 04/03/19 04/03/19 00:01 06:16 06:16 Creatine Kinase 137 H CK-MB (CK-2) 5.82 H 11.30 H Troponin I 0.027 0.040 NT-Pro-B Natriuret Pep 04/03/19 04/03/19 11:47 11:47 Creatine Kinase 98 CK-MB (CK-2) 8.91 H Troponin I 0.030 NT-Pro-B Natriuret Pep Impressions: Chest X-Ray 04/01/19 13:27 IMPRESSION: COPD. Chronic blunting of the left CP angle. No acute findings. KUB X-Ray 04/03/19 00:00 IMPRESSION: NG tube as described. There is still distention of the stomach and proximal bowel distention. Abdomen/Pelvis CT 04/04/19 00:00 IMPRESSION: 1. DISTENDED GAS-FILLED STOMACH. MAY BE DUE TO GASTROPARESIS ALTHOUGH CANNOT EXCLUDE GASTRIC OUTLET OBSTRUCTION. NO SIGNIFICANT BOWEL DILATION. 2. GALLSTONES. 3. NO OTHER SIGNIFICANT OR ACUTE PROCESS IN THE ABDOMEN OR PELVIS. Chest CT 04/04/19 00:00 IMPRESSION: EMPHYSEMATOUS CHANGES WITH CHRONIC SCARRING. NO ACUTE FINDING ON NON-CONTRASTED CHEST CT. Assessment and Plan - Diagnosis (1) Acute exacerbation of chronic obstructive pulmonary disease (COPD) Is this a current diagnosis for this admission?: Yes Plan: Improved; now maintaining oxygen saturations on nasal cannula while awake. Utilized her home AVPAP settings overnight with significant improvement in ABG. Patient is admitted to [facility] on continuous cardiac telemetry. CT chest was negative for acute finding; does demonstrate emphysema. We will continue supplemental oxygen and a AVAPS as needed to maintain saturations. Continue scheduled and as needed nebulizer treatments. Continue IV Solu-Medrol; will begin weaning tomorrow if continues to clinically improve. Patient is empirically been placed on IV doxycycline for acute bronchitis. Mucinex twice daily. Singulair nightly Incentive spirometer and flutter valve when off AVAP (2) Acute and chronic respiratory failure ([id number]) Qualifiers: Respiratory failure complication: hypoxia and hypercapnia Qualified Cod e(s): J96.21 - Acute and chronic respiratory failure with hypoxia; J96.22 - Acute and chronic respiratory failure with hypercapnia Is this a current diagnosis for this admission?: Yes Plan: Secondary to #1. Evaluation and management as above. (3) Abdominal distention Is this a current diagnosis for this admission?: Yes Plan: Resolved. Tolerated AVAPS on home settings overnight without abdominal distention. Gastric distention is secondary to gas r/t BiPAP use. CT ABD/Pelvis showed distended gas-filled stomach possibly due to gastroparesis without significant bowel dilatation. Dr. Nuno kindly reviewed the images yesterday; no evidence of obstruction up on his review. Patient is placed on twice daily IV Protonix with Carafate every 6 hours. Will d/c NG tube today. Cautiously advance diet. (4) Tobacco dependence Is this a current diagnosis for this admission?: Yes Plan: Smoking cessation encouraged. Nicotine replacement therapies provided. (5) Depression Qualifiers: Depression Type: unspecified Qualified Code(s): F32.9 - Major depressive disorder, single episode, unspecified Is this a current diagnosis for this admission?: Yes Plan: Depression with anxiety. Continue home medication regiment of Cymbalta and Geodon. Low-dose IV Ativan as needed for acute anxiety and agitation. - Time Time Spent with patient: 35 or more minutes Medications reviewed and adjusted accordingly: Yes Anticipated discharge: Home Within: within 72 hours
[2019-04-05] MEDS: MONTELUKAST SODIUM 10 MG TABLET PO SCH (22:50)
[2019-04-06] MEDS: ALBUTEROL SULFATE 0.083% NEB 2.5 MG/3 ML AMPUL NEB PRN (00:35)
[2019-04-06] MEDS: IPRATROPIUM/ALBUTEROL 0.5-2.5 MG/3 ML AMPUL NEB SCH ×4 (02:36→19:50)
[2019-04-06] MEDS: HEPARIN SOD (PORCINE) 5,000 UNIT/ML 1 ML VIAL SUBCUT SCH ×3 (05:48→21:47)
[2019-04-06] MEDS: METHYLPREDNISOLONE INJ 125 MG/2 ML SDV IV SCH ×3 (05:48→21:47)
[2019-04-06] MEDS: SUCRALFATE 1 GM TABLET PO SCH ×3 (05:48→18:06)
[2019-04-06 06:29] LABS: HEMOGLOBIN 11.8 g/dL (12.0-15.5); MEAN CORPUSCULAR HEMOGLOBIN 28.6 pg (27.0-33.4); MEAN CORPUSCULAR HGB CONC 33.6 g/dL (32.0-36.0); MEAN CORPUSCULAR VOLUME 85 fl (80-97); PLATELET COUNT 173 10^3/uL (150-450); RED BLOOD COUNT 4.12 10^6/uL (3.72-5.28); RED CELL DISTRIBUTION WIDTH 16.7 % (11.5-14.0); WHITE BLOOD COUNT 9.3 10^3/uL (4.0-10.5)
[2019-04-06 06:53] LABS: BLOOD UREA NITROGEN 20 mg/dL (7-20); CALCIUM 8.7 mg/dL (8.4-10.2); CHLORIDE 91 mmol/L (98-107); GLUCOSE 125 mg/dL (75-110); POTASSIUM 4.2 mmol/L (3.6-5.0)
[2019-04-06 06:59] LABS: ANION GAP 7 (5-19)
[2019-04-06 07:07] LABS: CARBON DIOXIDE 38 mmol/L (22-30)
[2019-04-06] MEDS: ZIPRASIDONE HCL 40 MG CAPSULE PO SCH ×2 (11:46→18:06)
[2019-04-06] MEDS: GUAIFENESIN 600 MG TABLET.SA PO SCH ×2 (11:46→21:47)
[2019-04-06] MEDS: DILTIAZEM HCL 120 MG CAP.SR.24H PO SCH (11:47)
[2019-04-06] MEDS: DULOXETINE HCL 30 MG CAPSULE.DR PO SCH (11:48)
[2019-04-06] MEDS: FLUTICASONE/VILANTEROL 200-25 MCG/DOSE IH SCH (11:50)
[2019-04-06] MEDS: PANTOPRAZOLE SODIUM 40 MG VIAL IV SCH ×2 (11:50→21:47)
[2019-04-06] MEDS: DOXYCYCLINE HYCLATE 100 MG in DEXTROSE 5%-WATER 250 ML IV SCH ×2 (11:51→21:47)
[2019-04-06] MEDS ORDERED: RINGERS SOLUTION,LACTATED 1,000 ML IV PRN (18:45)
--- NOTE | 2019-04-06 18:49 | PDOC PROGRESS REPORT ---
Subjective Progress Note for:: 04/06/19 Subjective:: The patient was seen on afternoon rounds. She was found resting in bed, comfortably, on supplemental oxygen via nasal cannula. She did use AVAPS overnight and for a few hours midmorning. She reports her dyspnea significantly improved. She does continue to have a wet sounding cough but with minimal sputum. Overall, patient reports she is feeling significantly better today. She denies fever, chills, chest pain, palpitations, orthopnea, abd pain, nausea and vomiting. Abdominal distention gas has resolved. She has no questions or concerns today. No concerns per nursing. Reason For Visit: ACUTE ON CHRONIC RESPIRATORY FAILURE,AECOPD Physical Exam Vital Signs: Temp Pulse Resp BP Pulse Ox 97.8 F 89 31 H 150/73 H 100 04/06/19 08:01 04/06/19 14:10 04/06/19 14:10 04/06/19 08:01 04/06/19 14:10 Intake & Output 04/05/19 04/06/19 04/07/19 06:59 06:59 06:59 Intake Total 2024 3666 Output Total 1635 2400 Balance 389 1266 Weight 83.9 kg 81.6 kg General appearance: PRESENT: no acute distress, cooperative, well-developed, well-nourished Head exam: PRESENT: atraumatic, normocephalic Eye exam: PRESENT: conjunctiva pink, EOMI, PERRLA. ABSENT: scleral icterus Mouth exam: PRESENT: moist, tongue midline Teeth exam: PRESENT: poor dentation Respiratory exam: PRESENT: prolonged expiratory phas, rhonchi, symmetrical, unlabored, wheezes - Slight expiratory, other - Supplemental oxygen by nasal cannula. ABSENT: rales Cardiovascular exam: PRESENT: RRR, +S1, +S2. ABSENT: diastolic murmur, rubs, systolic murmur Pulses: PRESENT: normal dorsalis pedis pul Vascular exam: PRESENT: normal capillary refill GI/Abdominal exam: PRESENT: normal bowel sounds, soft. ABSENT: distended, gua rding, mass, organolmegaly, rebound, tenderness Rectal exam: PRESENT: deferred Extremities exam: PRESENT: full ROM. ABSENT: calf tenderness, clubbing, pedal edema Neurological exam: PRESENT: alert, awake, oriented to person, oriented to place, oriented to time, oriented to situation, CN II-XII grossly intact. ABSENT: cheri r sensory deficit Psychiatric exam: PRESENT: anxious, normal mood, unusual affect. ABSENT: homicidal ideation, suicidal ideation Skin exam: PRESENT: dry, intact, warm. ABSENT: cyanosis, rash Results Laboratory Results: 04/06/19 05:11 04/06/19 05:11 04/06/19 04/06/19 05:11 05:11 WBC 9.3 RBC 4.12 Hgb 11.8 L Hct 35.0 L MCV 85 MCH 28.6 MCHC 33.6 RDW 16.7 H Plt Count 173 Sodium 136.4 L Potassium 4.2 Chloride 91 L Carbon Dioxide 38 H Anion Gap 7 BUN 20 Creatinine 0.59 Est GFR ( Amer) > 60 Glucose 125 H Calcium 8.7 04/01/19 14:01 Blood Blood Culture - Final NO GROWTH IN 5 DAYS 04/01/19 13:15 Blood Blood Culture - Final NO GROWTH IN 5 DAYS 04/01/19 04/01/19 04/03/19 13:15 13:15 00:01 Creatine Kinase 58 74 CK-MB (CK-2) 4.49 Troponin I 0.027 NT-Pro-B Natriuret Pep 346 H 04/03/19 04/03/19 04/03/19 00:01 06:16 06:16 Creatine Kinase 137 H CK-MB (CK-2) 5.82 H 11.30 H Troponin I 0.027 0.040 NT-Pro-B Natriuret Pep 04/03/19 04/03/19 11:47 11:47 Creatine Kinase 98 CK-MB (CK-2) 8.91 H Troponin I 0.030 NT-Pro-B Natriuret Pep Impressions: Chest X-Ray 04/01/19 13:27 IMPRESSION: COPD. Chronic blunting of the left CP angle. No acute findings. KUB X-Ray 04/03/19 00:00 IMPRESSION: NG tube as described. There is still distention of the stomach and proximal bowel distention. Abdomen/Pelvis CT 04/04/19 00:00 IMPRESSION: 1. DISTENDED GAS-FILLED STOMACH. MAY BE DUE TO GASTROPARESIS ALTHOUGH CANNOT EXCLUDE GASTRIC OUTLET OBSTRUCTION. NO SIGNIFICANT BOWEL DILATION. 2. GALLSTONES. 3. NO OTHER SIGNIFICANT OR ACUTE PROCESS IN THE ABDOMEN OR PELVIS. Chest CT 04/04/19 00:00 IMPRESSION: EMPHYSEMATOUS CHANGES WITH CHRONIC SCARRING. NO ACUTE FINDING ON NON-CONTRASTED CHEST CT. Assessment and Plan - Diagnosis (1) Acute exacerbation of chronic obstructive pulmonary disease (COPD) Is this a current diagnosis for this admission?: Yes Plan: Improved; now maintaining oxygen saturations on nasal cannula while awake. Utilized her home AVPAP settings overnight with significant improvement in ABG. Patient is admitted to [facility] on continuous cardiac telemetry. CT chest was negative for acute finding; does demonstrate emphysema. We will continue supplemental oxygen and a AVAPS as needed to maintain saturations. Continue scheduled and as needed nebulizer treatments. Continue IV Solu-Medrol; will begin weaning steroids. Patient is empirically been placed on IV doxycycline for acute bronchitis. Mucinex twice daily. Singulair nightly Incentive spirometer and flutter valve when off AVAP (2) Acute and chronic respiratory failure ([id number]) Qualifiers: Respiratory failure complication: hypoxia and hypercapnia Qualified Code(s): J96.21 - Acute and chronic respiratory failure with hypoxia; J96.22 - Acute and chronic respiratory failure with hypercapnia Is this a current diagnosis for this admission?: Yes Plan: Secondary to #1. Evaluation and management as above. (3) Abdominal distention Is this a current diagnosis for this admission?: Yes Plan: Resolved. Tolerated AVAPS on home settings overnight without abdominal distention. Gastric distention is secondary to gas r/t BiPAP use. CT ABD/Pelvis showed distended gas-filled stomach possibly due to gastroparesis without significant bowel dilatation. Dr. Nuno kindly reviewed the images yesterday; no evidence of obstruction upon his review. Patient is placed on twice daily IV Protonix with Carafate every 6 hours. Have advanced to a cardiac diet. (4) Tobacco dependence Is this a current diagnosis for this admission?: Yes Plan: Smoking cessation encouraged. Nicotine replacement therapies provided. (5) Depression Qualifiers: Depression Type: unspecified Qualified Code(s): F32.9 - Major depressive disorder, single episode, unspecified Is this a current diagnosis for this admission?: Yes Plan: Depression with anxiety. Continue home medication regiment of Cymbalta and Geodon. Low-dose IV Ativan as needed for acute anxiety and agitation. - Time Time Spent with patient: 25-34 minutes Medications reviewed and adjusted accordingly: Yes Anticipated discharge: Home with Homehealth Within: within 72 hours
[2019-04-06] MEDS: MONTELUKAST SODIUM 10 MG TABLET PO SCH (21:47)
[2019-04-07] MEDS: SUCRALFATE 1 GM TABLET PO SCH ×3 (00:41→17:58)
[2019-04-07] MEDS: IPRATROPIUM/ALBUTEROL 0.5-2.5 MG/3 ML AMPUL NEB SCH ×4 (02:02→19:49)
[2019-04-07] MEDS: METHYLPREDNISOLONE INJ 125 MG/2 ML SDV IV SCH ×3 (06:34→21:02)
[2019-04-07] MEDS: HEPARIN SOD (PORCINE) 5,000 UNIT/ML 1 ML VIAL SUBCUT SCH ×3 (06:35→21:01)
[2019-04-07] MEDS: ZIPRASIDONE HCL 40 MG CAPSULE PO SCH ×2 (08:12→18:04)
[2019-04-07] MEDS: FLUTICASONE/VILANTEROL 200-25 MCG/DOSE IH SCH (11:08)
[2019-04-07] MEDS: PANTOPRAZOLE SODIUM 40 MG VIAL IV SCH (11:12)
[2019-04-07] MEDS: DOXYCYCLINE HYCLATE 100 MG in DEXTROSE 5%-WATER 250 ML IV SCH ×2 (11:13→21:05)
[2019-04-07] MEDS: GUAIFENESIN 600 MG TABLET.SA PO SCH ×2 (11:14→21:02)
[2019-04-07] MEDS: DILTIAZEM HCL 120 MG CAP.SR.24H PO SCH (11:14)
[2019-04-07] MEDS: DULOXETINE HCL 30 MG CAPSULE.DR PO SCH (11:15)
[2019-04-07] MEDS: AZITHROMYCIN 500 MG in DEXTROSE 5%-WATER 250 ML IV SCH (12:30)
--- NOTE | 2019-04-07 13:43 | PDOC PROGRESS REPORT ---
Subjective Progress Note for:: 04/07/19 Subjective:: The patient was seen on morning rounds. She was found resting in bed, comfortably, on AVAPs. She reports her dyspnea significantly improved. Lung sounds improved. Overall, patient reports she is feeling significantly better today. However, did she desaturated to 70% on 5 L via nasal cannula today while up to the bathroom. She denies fever, chills, chest pain, palpitations, orthopnea, abd pain, nausea and vomiting. Abdominal distention gas has resolved. She has no questions or concerns today. No concerns per nursing. Reason For Visit: ACUTE ON CHRONIC RESPIRATORY FAILURE,AECOPD Physical Exam Vital Signs: Temp Pulse Resp BP Pulse Ox 98.0 F 82 20 148/85 H 97 04/07/19 12:13 04/07/19 12:13 04/07/19 12:13 04/07/19 12:13 04/07/19 12:13 Intake & Output 04/06/19 04/07/19 04/08/19 06:59 06:59 06:59 Intake Total 3666 3674 Output Total 2400 1400 Balance 1266 2274 Weight 81.6 kg 82.2 kg General appearance: PRESENT: no acute distress, cooperative, well-developed, well-nourished Head exam: PRESENT: atraumatic, normocephalic Eye exam: PRESENT: conjunctiva pink, EOMI, PERRLA. ABSENT: scleral icterus Mouth exam: PRESENT: moist, tongue midline Teeth exam: PRESENT: poor dentation Respiratory exam: PRESENT: clear to auscultation jeromy, prolonged expiratory phas, rhonchi - Scant, symmetrical, unlabored, other - AVAPs. ABSENT: rales, wheezes Cardiovascular exam: PRESENT: RRR, +S1, +S2. ABSENT: diastolic murmur, rubs, systolic murmur Pulses: PRESENT: normal dorsalis pedis pul Vascular exam: PRESENT: normal capillary refill GI/Abdominal exam: PRESENT: normal bowel sounds, soft. ABSENT: distended, guarding, mass, organolmegaly, rebound, tenderness Rectal exam: PRESENT: deferred Extremities exam: PRESENT: full ROM. ABSENT: calf tenderness, clubbing, pedal edema Neurological exam: PRESENT: alert, awake, oriented to person, oriented to place, oriented to time, oriented to situation, CN II-XII grossly intact. ABSENT: motor sensory deficit Psychiatric exam: PRESENT: normal mood, unusual affect. ABSENT: homicidal ideation, suicidal ideation Skin exam: PRESENT: dry, intact, warm. ABSENT: cyanosis, rash Results Laboratory Results: 04/06/19 05:11 04/06/19 05:11 04/01/19 14:01 Blood Blood Culture - Final NO GROWTH IN 5 DAYS 04/01/19 13:15 Blood Blood Culture - Final NO GROWTH IN 5 DAYS 04/01/19 04/01/19 04/03/19 13:15 13:15 00:01 Creatine Kinase 58 74 CK-MB (CK-2) 4.49 Troponin I 0.027 NT-Pro-B Natriuret Pep 346 H 04/03/19 04/03/19 04/03/19 00:01 06:16 06:16 Creatine Kinase 137 H CK-MB (CK-2) 5.82 H 11.30 H Troponin I 0.027 0.040 NT-Pro-B Natriuret Pep 04/03/19 04/03/19 11:47 11:47 Creatine Kinase 98 CK-MB (CK-2) 8.91 H Troponin I 0.030 NT-Pro-B Natriuret Pep Impressions: Chest X-Ray 04/01/19 13:27 IMPRESSION: COPD. Chronic blunting of the left CP angle. No acute findings. KUB X-Ray 04/03/19 00:00 IMPRESSION: NG tube as described. There is still distention of the stomach and proximal bowel distention. Abdomen/Pelvis CT 04/04/19 00:00 IMPRESSION: 1. DISTENDED GAS-FILLED STOMACH. MAY BE DUE TO GASTROPARESIS ALTHOUGH CANNOT EXCLUDE GASTRIC OUTLET OBSTRUCTION. NO SIGNIFICANT BOWEL DILATION. 2. GALLSTONES. 3. NO OTHER SIGNIFICANT OR ACUTE PROCESS IN THE ABDOMEN OR PELVIS. Chest CT 04/04/19 00:00 IMPRESSION: EMPHYSEMATOUS CHANGES WITH CHRONIC SCARRING. NO ACUTE FINDING ON NON-CONTRASTED CHEST CT. Assessment and Plan - Diagnosis (1) Acute exacerbation of chronic obstructive pulmonary disease (COPD) Is this a current diagnosis for this admission?: Yes Plan: Plateaued; now maintaining oxygen saturations on nasal cannula while awake while at rest but with significant desaturation with minimal exertion. Primarily a AVAPs dependent. ABG has improved Patient is admitted to [facility] on continuous cardiac telemetry. CT chest was negative for acute finding; does demonstrate emphysema. We will continue supplemental oxygen and a AVAPS as needed to maintain saturations. Continue scheduled and as needed nebulizer treatments. Continue IV Solu-Medrol Patient was empirically been placed on IV doxycycline for acute bronchitis. Mucinex twice daily. Singulair nightly Incentive spirometer and flutter valve when off AVAP Discussed with patient's lead software test engineer, Dr. Artis, today. He recommends eval uating for pulmonary embolus. He also recommends the addition of macrolide for atypical coverage. Have started azithromycin. Unfortunately, patient has an anaphylactic reaction to contrast dye. D-dimer was, expectedly, high at 11. Will attempt VQ scan. (2) Acute and chronic respiratory failure ([id number]) Qualifiers: Respiratory failure complication: hypoxia and hypercapnia Qualified Code(s): J96.21 - Acute and chronic respiratory failure with hypoxia; J96.22 - Acute and chronic respiratory failure with hypercapnia Is this a current diagnosis for this admission?: Yes Plan: Secondary to #1. Evaluation and management as above. (3) Abdominal distention Is this a current diagnosis for this admission?: Yes Plan: Resolved. Tolerated AVAPS on home settings overnight without abdominal di stention. Gastric distention is secondary to gas r/t BiPAP use. CT ABD/Pelvis showed distended gas-filled stomach possibly due to gastroparesis without significant bowel dilatation. Dr. Nuno kindly reviewed the images yesterday; no evidence of obstruction upon his review. Patient is placed on twice daily IV Protonix with Carafate every 6 hours. Have advanced to a cardiac diet. (4) Tobacco dependence Is this a current diagnosis for this admission?: Yes Plan: Smoking cessation encouraged. Nicotine replacement therapies provided. (5) Depression Qualifiers: Depression Type: unspecified Qualified Code(s): F32.9 - Major depressive disorder, single episode, unspecified Is this a current diagnosis for this admission?: Yes Plan: Depression with anxiety. Continue home medication regiment of Lloyd and Geodon. Low-dose IV Ativan as needed for acute anxiety and agitation. - Time Time Spent with patient: 35 or more minutes Medications reviewed and adjusted accordingly: Yes Anticipated discharge: Home
--- NOTE | 2019-04-07 15:30 | RADIOLOGY REPORT (SQ) ---
EXAM DESCRIPTION: NM LUNG VENT/PERF SCAN COMPLETED DATE/TIME: 04/07/2019 3:13 pm REASON FOR STUDY: hypoxia, elevated ddimer COMPARISON: CT chest 04/04/2019. RADIONUCLIDE AND DOSE: 5.39 millicuries TC-99m MAA Intravenous TECHNIQUE: Eight views of the lungs acquired post ventilation of DTPA aerosol. Eight matching views of the lungs acquired following injection of MAA. LIMITATIONS: Limited exam secondary to patient intolerance. Limited perfusion images were obtained. No ventilation images acquired. FINDINGS: VENTILATION: Limited exam. Perfusion images demonstrate no definitive wedge-shaped perfus ion defect to suggest pulmonary embolus. Mild retrocardiac and biapical photopenia, right greater th an left. Apical photopenia. PERFUSION: Not obtained. OTHER: No other significant finding. IMPRESSION: Limited exam perfusion only images obtained secondary to patient intolerance. No definitive wedge-shaped perfusion defect to suggest pulmonary emboli. Apical photopenia likely se condary to emphysematous change. TECHNICAL DOCUMENTATION: JOB ID: [id number]- All Rights Reserved Reading location - IP/workstation name: [email or web address]
[2019-04-07] MEDS: MONTELUKAST SODIUM 10 MG TABLET PO SCH (21:02)
[2019-04-08] MEDS: IPRATROPIUM/ALBUTEROL 0.5-2.5 MG/3 ML AMPUL NEB SCH ×4 (02:03→23:06)
[2019-04-08] MEDS: SUCRALFATE 1 GM TABLET PO SCH ×2 (02:35→06:03)
[2019-04-08 06:02] LABS: HEMATOCRIT 37.6 % (36.0-47.0); HEMOGLOBIN 12.2 g/dL (12.0-15.5); MEAN CORPUSCULAR HEMOGLOBIN 27.7 pg (27.0-33.4); MEAN CORPUSCULAR HGB CONC 32.4 g/dL (32.0-36.0); MEAN CORPUSCULAR VOLUME 85 fl (80-97); PLATELET COUNT 188 10^3/uL (150-450); RED BLOOD COUNT 4.41 10^6/uL (3.72-5.28); RED CELL DISTRIBUTION WIDTH 16.7 % (11.5-14.0); WHITE BLOOD COUNT 10.6 10^3/uL (4.0-10.5)
[2019-04-08] MEDS: METHYLPREDNISOLONE INJ 125 MG/2 ML SDV IV SCH (06:02)
[2019-04-08] MEDS: HEPARIN SOD (PORCINE) 5,000 UNIT/ML 1 ML VIAL SUBCUT SCH ×3 (06:02→21:49)
[2019-04-08 06:27] LABS: BLOOD UREA NITROGEN 22 mg/dL (7-20); CALCIUM 8.7 mg/dL (8.4-10.2); GLUCOSE 128 mg/dL (75-110); POTASSIUM 4.6 mmol/L (3.6-5.0)
[2019-04-08 06:54] LABS: CHLORIDE 92 mmol/L (98-107)
[2019-04-08 07:02] LABS: CARBON DIOXIDE 42 mmol/L (22-30)
[2019-04-08 07:08] LABS: ANION GAP 0 (5-19)
[2019-04-08] MEDS: ZIPRASIDONE HCL 40 MG CAPSULE PO SCH ×2 (08:41→17:34)
[2019-04-08] MEDS: DILTIAZEM HCL 120 MG CAP.SR.24H PO SCH (09:09)
[2019-04-08] MEDS: GUAIFENESIN 600 MG TABLET.SA PO SCH ×2 (09:09→21:57)
[2019-04-08] MEDS: DULOXETINE HCL 30 MG CAPSULE.DR PO SCH (09:09)
[2019-04-08] MEDS: FLUTICASONE/VILANTEROL 200-25 MCG/DOSE IH SCH (09:09)
[2019-04-08] MEDS: AZITHROMYCIN 500 MG in DEXTROSE 5%-WATER 250 ML IV SCH (10:57)
[2019-04-08] MEDS: DOXYCYCLINE HYCLATE 100 MG in DEXTROSE 5%-WATER 250 ML IV SCH (13:17)
--- NOTE | 2019-04-08 13:19 | PDOC PROGRESS REPORT ---
Subjective Progress Note for:: 04/08/19 Subjective:: The patient was seen on morning rounds. She was found resting in bed, comfortably, on nasal cannula. She reports her dyspnea significantly improved. Lung sounds improved. Overall, patient reports she is feeling significantly better today. She states that she is at her baseline respiratory status. She denies fever, chills, chest pain, palpitations, orthopnea, abd pain, nausea and vomiting. Abdominal distention gas has resolved. She has no questions or concerns today. No concerns per nursing. Reason For Visit: ACUTE ON CHRONIC RESPIRATORY FAILURE,AECOPD Physical Exam Vital Signs: Temp Pulse Resp BP Pulse Ox 98.0 F 93 18 166/81 H 93 04/08/19 08:20 04/08/19 08:26 04/08/19 08:26 04/08/19 08:20 04/08/19 08:26 Intake & Output 04/07/19 04/08/19 04/09/19 06:59 06:59 06:59 Intake Total 3674 1485 Output Total 1400 2150 Balance 2274 -665 Weight 82.2 kg 81.3 kg General appearance: PRESENT: no acute distress, cooperative, well-developed, well-nourished Head exam: PRESENT: atraumatic, normocephalic Eye exam: PRESENT: conjunctiva pink, EOMI, PERRLA. ABSENT: scleral icterus Mouth exam: PRESENT: moist, tongue midline Teeth exam: PRESENT: poor dentation Neck exam: ABSENT: carotid bruit, JVD, lymphadenopathy, thyromegaly Respiratory exam: PRESENT: decreased breath sounds, prolonged expiratory phas, symmetrical, unlabored, other - Pursed lip breathing. ABSENT: rales, rhonchi, wheezes Cardiovascular exam: PRESENT: RRR, +S1, +S2. ABSENT: diastolic murmur, rubs, systolic murmur Pulses: PRESENT: +1 pedal pulses bilateral Vascular exam: PRESENT: normal capillary refill GI/Abdominal exam: PRESENT: normal bowel sounds, soft. ABSENT: distended, guarding, mass, organolmegaly, rebound, tenderness Rectal exam: PRESENT: deferred Extremities exam: PRESENT: full ROM. ABSENT: calf tenderness, clubbing, pedal edema Neurological exam: PRESENT: alert, awake, oriented to person, oriented to place, oriented to time, oriented to situation, CN II-XII grossly intact. ABSENT: motor sensory deficit Psychiatric exam: PRESENT: appropriate affect, normal mood. ABSENT: homicidal ideation, suicidal ideation Skin exam: PRESENT: dry, intact, warm. ABSENT: cyanosis, rash Results Laboratory Results: 04/08/19 05:32 04/08/19 05:32 04/08/19 04/08/19 05:32 05:32 WBC 10.6 H RBC 4.41 Hgb 12.2 Hct 37.6 MCV 85 MCH 27.7 MCHC 32.4 RDW 16.7 H Plt Count 188 Sodium 134.3 L Potassium 4.6 Chloride 92 L Carbon Dioxide 42 H* Anion Gap 0 L BUN 22 H Creatinine 0.61 Est GFR ( Amer) > 60 Glucose 128 H Calcium 8.7 04/01/19 04/01/19 04/03/19 13:15 13:15 00:01 Creatine Kinase 58 74 CK-MB (CK-2) 4.49 Troponin I 0.027 NT-Pro-B Natriuret Pep 346 H 04/03/19 04/03/19 04/03/19 00:01 06:16 06:16 Creatine Kinase 137 H CK-MB (CK-2) 5.82 H 11.30 H Troponin I 0.027 0.040 NT-Pro-B Natriuret Pep 04/03/19 04/03/19 11:47 11:47 Creatine Kinase 98 CK-MB (CK-2) 8.91 H Troponin I 0.030 NT-Pro-B Natriuret Pep Impressions: Chest X-Ray 04/01/19 13:27 IMPRESSION: COPD. Chronic blunting of the left CP angle. No acute findings. KUB X-Ray 04/03/19 00:00 IMPRESSION: NG tube as described. There is still distention of the stomach and proximal bowel distention. Abdomen/Pelvis CT 04/04/19 00:00 IMPRESSION: 1. DISTENDED GAS-FILLED STOMACH. MAY BE DUE TO GASTROPARESIS ALTHOUGH CANNOT EXCLUDE GASTRIC OUTLET OBSTRUCTION. NO SIGNIFICANT BOWEL DILATION. 2. GALLSTONES. 3. NO OTHER SIGNIFICANT OR ACUTE PROCESS IN THE ABDOMEN OR PELVIS. Chest CT 04/04/19 00:00 IMPRESSION: EMPHYSEMATOUS CHANGES WITH CHRONIC SCARRING. NO ACUTE FINDING ON NON-CONTRASTED CHEST CT. Lung Scan-[facility] 04/07/19 00:00 IMPRESSION: Limited exam perfusion only images obtained secondary to patient intolerance. No definitive wedge-shaped perfusion defect to suggest pulmonary emboli. Apical photopenia likely secondary to emphysematous change. Assessment and Plan - Diagnosis (1) Acute exacerbation of chronic obstructive pulmonary disease (COPD) Is this a current diagnosis for this admission?: Yes Plan: Plateaued; now maintaining oxygen saturations on nasal cannula while awake while at rest but with significant desaturation with minimal exertion. Primarily a AVAPs dependent. Patient reports she is at her baseline respiratory status. ABG has improved Patient is admitted to [facility] on continuous cardiac telemetry. CT chest was negative for acute finding; does demonstrate emphysema. VQ scan was limited but negative for PE We will continue supplemental oxygen and a AVAPS as needed to maintain saturations. Continue scheduled and as needed nebulizer treatments. Continue IV Solu-Medrol; decreased further today. Patient was empirically been placed on IV doxycycline for acute bronchitis. Day #7 Mucinex twice daily. Singulair nightly Incentive spirometer and flutter valve when off AVAP Discussed with patient's chief compressor station engineer, Dr. Artis, today. He recommended evaluating for pulmonary embolus and starting macrolide for atypical coverage. Have started azithromycin. Day #2 (2) Acute and chronic respiratory failure ([id number]) Qualifiers: Respiratory failure complication: hypoxia and hypercapnia Qualified Code(s): J96.21 - Acute and chronic respiratory failure with hypoxia; J96.22 - Acute and chronic respiratory failure with hypercapnia Is this a current diagnosis for this admission?: Yes Plan: Improved; approaching baseline. Secondary to #1. Evaluation and management as above. (3) Abdominal distention Is this a current diagnosis for this admission?: Yes Plan: Resolved. Tolerated AVAPS on home settings overnight without abdominal distention. Gastric distention is secondary to gas r/t BiPAP use. CT ABD/Pelvis showed distended gas-filled stomach possibly due to gastroparesis without significant bowel dilatation. Dr. Nuno kindly reviewed the images yesterday; no evidence of obstruction upon his review. Patient was placed on twice daily IV Protonix with Carafate every 6 hours. Have discontinued Carafate and transition to p.o. Protonix. Have advanced to a cardiac diet. (4) Tobacco dependence Is this a current diagnosis for this admission?: Yes Plan: Smoking cessation encouraged. Nicotine replacement therapies provided. (5) Depression Qualifiers: Depression Type: unspecified Qualified Code(s): F32.9 - Major depressive disorder, single episode, unspecified Is this a current diagnosis for this admission?: Yes Plan: Depression with anxiety. Continue home medication regiment of Cymbalta and Geodon. Low-dose IV Ativan as needed for acute anxiety and agitation. - Time Time Spent with patient: 15-24 minutes Medications reviewed and adjusted accordingly: Yes Anticipated discharge: Home Within: within 48 hours
[2019-04-08] MEDS ORDERED: METHYLPREDNISOLONE INJ 125 MG/2 ML SDV IV SCH (14:00)
[2019-04-08] MEDS: METHYLPREDNISOLONE INJ 40 MG/1 ML SDV IV SCH ×2 (14:53→21:48)
[2019-04-08] MEDS: MONTELUKAST SODIUM 10 MG TABLET PO SCH (21:49)
[2019-04-09 06:03] LABS: BLOOD UREA NITROGEN 23 mg/dL (7-20); CALCIUM 8.6 mg/dL (8.4-10.2); GLUCOSE 134 mg/dL (75-110)
[2019-04-09 06:29] LABS: CHLORIDE 91 mmol/L (98-107); POTASSIUM 4.6 mmol/L (3.6-5.0)
[2019-04-09 06:35] LABS: ANION GAP 5 (5-19); CARBON DIOXIDE 40 mmol/L (22-30)
[2019-04-09] MEDS: PANTOPRAZOLE SODIUM 40 MG TABLET.DR PO SCH (07:09)
[2019-04-09] MEDS: HEPARIN SOD (PORCINE) 5,000 UNIT/ML 1 ML VIAL SUBCUT SCH ×3 (07:09→22:19)
[2019-04-09] MEDS: IPRATROPIUM/ALBUTEROL 0.5-2.5 MG/3 ML AMPUL NEB SCH ×2 (08:25→20:24)
[2019-04-09] MEDS: ZIPRASIDONE HCL 40 MG CAPSULE PO SCH ×2 (08:38→17:04)
--- NOTE | 2019-04-09 10:23 | PDOC PROGRESS REPORT ---
Subjective Progress Note for:: 04/09/19 Subjective:: The patient was seen on morning rounds. She was found resting in bed, comfortably, on nasal cannula at 4lpm; utilizes 3lpm at baseline. She states that she is at her baseline respiratory status. Offered discharge home; patient states she doesn't feel ready; requests additional day. She is noted to have continued tachypnea and pursed lip breathing. She denies fever, chills, chest pain, palpitations, orthopnea, abd pain, nausea and vomiting. Abdominal distention gas has resolved. She has no questions or concerns today. No concerns per nursing. Reason For Visit: ACUTE ON CHRONIC RESPIRATORY FAILURE,AECOPD Physical Exam Vital Signs: Temp Pulse Resp BP Pulse Ox 98.6 F 99 18 149/77 H 95 04/09/19 08:24 04/09/19 08:25 04/09/19 08:25 04/09/19 08:24 04/09/19 08:25 Intake & Output 04/08/19 04/09/19 04/10/19 06:59 06:59 06:59 Intake Total 1735 2500 Output Total 2150 2900 Balance -415 -400 Weight 81.3 kg 82.2 kg General appearance: PRESENT: no acute distress, cooperative, well-developed, well-nourished, other - overweight Head exam: PRESENT: atraumatic, normocephalic Eye exam: PRESENT: conjunctiva pink, EOMI, PERRLA. ABSENT: scleral icterus Mouth exam: PRESENT: moist, tongue midline Teeth exam: PRESENT: poor dentation Respiratory exam: PRESENT: clear to auscultation jeromy, decreased breath sounds - throughout; poor inspiratory effort, prolonged expiratory phas, symmetrical, unlabored, other - supplemental oxygen via NC. ABSENT: rales, rhonchi, wheezes Cardiovascular exam: PRESENT: RRR, +S1, +S2. ABSENT: diastolic murmur, rubs, systolic murmur Pulses: PRESENT: normal dorsalis pedis pul Vascular exam: PRESENT: normal capillary refill Extremities exam: PRESENT: full ROM. ABSENT: calf tenderness, clubbing, pedal edema Neurological exam: PRESENT: alert, awake, oriented to person, oriented to place, oriented to time, oriented to situation, CN II-XII grossly intact. ABSENT: motor sensory deficit Psychiatric exam: PRESENT: appropriate affect, normal mood. ABSENT: homicidal ideation, suicidal ideation Skin exam: PRESENT: dry, intact, warm. ABSENT: cyanosis, rash Results Laboratory Results: 04/08/19 05:32 04/09/19 05:19 04/09/19 05:19 Sodium 135.5 L Potassium 4.6 Chloride 91 L Carbon Dioxide 40 H* Anion Gap 5 BUN 23 H Creatinine 0.58 Est GFR ( Amer) > 60 Glucose 134 H Calcium 8.6 04/01/19 04/01/19 04/03/19 13:15 13:15 00:01 Creatine Kinase 58 74 CK-MB (CK-2) 4.49 Troponin I 0.027 NT-Pro-B Natriuret Pep 346 H 04/03/19 04/03/19 04/03/19 00:01 06:16 06:16 Creatine Kinase 137 H CK-MB (CK-2) 5.82 H 11.30 H Troponin I 0.027 0.040 NT-Pro-B Natriuret Pep 04/03/19 04/03/19 11:47 11:47 Creatine Kinase 98 CK-MB (CK-2) 8.91 H Troponin I 0.030 NT-Pro-B Natriuret Pep Impressions: Chest X-Ray 04/01/19 13:27 IMPRESSION: COPD. Chronic blunting of the left CP angle. No acute findings. KUB X-Ray 04/03/19 00:00 IMPRESSION: NG tube as described. There is still distention of the stomach and proximal bowel distention. Abdomen/Pelvis CT 04/04/19 00:00 IMPRESSION: 1. DISTENDED GAS-FILLED STOMACH. MAY BE DUE TO GASTROPARESIS ALTHOUGH CANNOT EXCLUDE GASTRIC OUTLET OBSTRUCTION. NO SIGNIFICANT BOWEL DILATION. 2. GALLSTONES. 3. NO OTHER SIGNIFICANT OR ACUTE PROCESS IN THE ABDOMEN OR PELVIS. Chest CT 04/04/19 00:00 IMPRESSION: EMPHYSEMATOUS CHANGES WITH CHRONIC SCARRING. NO ACUTE FINDING ON NON-CONTRASTED CHEST CT. Lung Scan-[facility] 04/07/19 00:00 IMPRESSION: Limited exam perfusion only images obtained secondary to patient intolerance. No definitive wedge-shaped perfusion defect to suggest pulmonary emboli. Apical photopenia likely secondary to emphysematous change. Assessment and Plan - Diagnosis (1) Acute exacerbation of chronic obstructive pulmonary disease (COPD) Is this a current diagnosis for this admission?: Yes Plan: Plateaued; now maintaining oxygen saturations on nasal cannula while awake while at rest but with significant desaturation with minimal exertion. Primarily a AVAPs dependent. Patient reports she is at her baseline respiratory status. ABG has improved Patient is admitted to [facility] on continuous cardiac telemetry. CT chest was negative for acute finding; does demonstrate emphysema. VQ scan was limited but negative for PE We will continue supplemental oxygen and a AVAPS as needed to maintain saturations. Continue scheduled and as needed nebulizer treatments; decreased frequency of s cheduled treatments. Transition to p.o. prednisone today. Finished 7 day course of IV doxycycline for acute bronchitis. Mucinex twice daily. Singulair nightly Start daliresp. Start Trelegy Incentive spirometer and flutter valve when off AVAP Discussed with patient's rn eligibility, Dr. Artis. He recommended evaluating for pulmonary embolus (fortunately, negative) and starting macrolide for atyp ical coverage. Cotninue azithromycin. Day #3 of 5. (2) Acute and chronic respiratory failure ([id number]) Qualifiers: Respiratory failure complication: hypoxia and hypercapnia Qualified Code(s): J96.21 - Acute and chronic respiratory failure with hypoxia; J96.22 - Acute and chronic respiratory failure with hypercapnia Is this a current diagnosis for this admission?: Yes Plan: Improved; approaching baseline. Secondary to #1. Evaluation and management as above. (3) Abdominal distention Is this a current diagnosis for this admission?: Yes Plan: Resolved. Tolerated AVAPS on home settings overnight without abdominal distention. Gastric distention is secondary to gas r/t BiPAP use. CT ABD/Pelvis showed distended gas-filled stomach possibly due to gastroparesis without significant bowel dilatation. Dr. Nuno kindly reviewed the images; no evidence of obstruction upon his review. Patient was placed on twice daily IV Protonix with Carafate every 6 hours. Have discontinued Carafate and transition to p.o. Protonix. Have advanced to a cardiac diet; tolerating well. (4) Tobacco dependence Is this a current diagnosis for this admission?: Yes Plan: Smoking cessation encouraged. Nicotine replacement therapies provided. (5) Depression Qualifiers: Depression Type: unspecified Qualified Code(s): F32.9 - Major depressive disorder, single episode, unspecified Is this a current diagnosis for this admission?: Yes Plan: Depression with anxiety. Continue home medication regiment of Cymbalta and Geodon. Low-dose IV Ativan as needed for acute anxiety and agitation. - Time Time Spent with patient: 25-34 minutes Medications reviewed and adjusted accordingly: Yes Anticipated discharge: Home Within: within 24 hours
[2019-04-09] MEDS: FLUTICASONE/UMECLIDIN/VILANTER 100-62.5-25 MCG/DOSE IH SCH (10:32)
[2019-04-09] MEDS: PREDNISONE 20 MG TABLET PO SCH (10:33)
[2019-04-09] MEDS: ROFLUMILAST 500 MCG TABLET PO SCH (10:34)
[2019-04-09] MEDS: DILTIAZEM HCL 120 MG CAP.SR.24H PO SCH (10:34)
[2019-04-09] MEDS: DULOXETINE HCL 30 MG CAPSULE.DR PO SCH (10:34)
[2019-04-09] MEDS: GUAIFENESIN 600 MG TABLET.SA PO SCH ×2 (10:34→22:19)
[2019-04-09] MEDS: AZITHROMYCIN 250 MG TABLET PO SCH (10:34)
[2019-04-09] MEDS: MONTELUKAST SODIUM 10 MG TABLET PO SCH (22:19)
[2019-04-10] MEDS: PANTOPRAZOLE SODIUM 40 MG TABLET.DR PO SCH (05:41)
[2019-04-10] MEDS: HEPARIN SOD (PORCINE) 5,000 UNIT/ML 1 ML VIAL SUBCUT SCH ×2 (05:41→13:08)
[2019-04-10] MEDS: ZIPRASIDONE HCL 40 MG CAPSULE PO SCH (08:03)
[2019-04-10] MEDS: IPRATROPIUM/ALBUTEROL 0.5-2.5 MG/3 ML AMPUL NEB SCH (08:23)
[2019-04-10] MEDS: GUAIFENESIN 600 MG TABLET.SA PO SCH (09:19)
[2019-04-10] MEDS: PREDNISONE 20 MG TABLET PO SCH (09:19)
[2019-04-10] MEDS: DILTIAZEM HCL 120 MG CAP.SR.24H PO SCH (09:20)
[2019-04-10] MEDS: AZITHROMYCIN 250 MG TABLET PO SCH (09:21)
[2019-04-10] MEDS: ROFLUMILAST 500 MCG TABLET PO SCH (09:21)
[2019-04-10] MEDS: DULOXETINE HCL 30 MG CAPSULE.DR PO SCH (09:21)
[2019-04-10] MEDS: FLUTICASONE/UMECLIDIN/VILANTER 100-62.5-25 MCG/DOSE IH SCH (09:21)
[2019-04-10 12:49] VITALS: BP 133/72
--- NOTE | 2019-04-13 17:31 | PDOC DISCHARGE SUMMARY ---
Impression - Admit/DC Date/PCP Admission Date/Primary Care Provider: 04/01/19 17:31 JOSIAH ARRIAGA MD Discharge Date: 04/13/19 - Discharge Diagnosis (1) Acute exacerbation of chronic obstructive pulmonary disease (COPD) Is this a current diagnosis for this admission?: Yes (2) Acute and chronic respiratory failure ([id number]) Is this a current diagnosis for this admission?: Yes (3) Abdominal distention Is this a current diagnosis for this admission?: Yes (4) Tobacco dependence Is this a current diagnosis for this admission?: Yes (5) Depression Is this a current diagnosis for this admission?: Yes - Additional Information Discharge Diet: As Tolerated Discharge Activity: Activity As Tolerated, Balance Activity w/Rest Referrals: LUBA ARTIS MD [ACTIVE STAFF] - 04/17/19 2:15 pm () JOSIAH ARRIAGA MD [Primary Care Provider] - 04/18/19 10:00 am (Follow up within 1 week.) Prescriptions: Nebulizer [Compact Compressor Nebulizer] 1 each MC ASDIR PRN #1 each PRN Reason: Roflumilast [Daliresp 500 Mcg Tablet] 500 mcg PO DAILY #30 tablet Prednisone [Deltasone 20 mg Tablet] 60 mg PO DAILY #12 tablet Ipratropium/Albuterol Sulfate [Duoneb 3 ml Ampul] 3 ml NEB RTQ6HP PRN #120 vial.neb PRN Reason: Guaifenesin [Mucinex Sr 600 mg Tablet.sa] 600 mg PO Q12 #14 tablet.sa Albuterol Sulfate [Proair HFA Inhalation Aerosol 8.5 gm MDI] 2 puff IH Q4HP PRN #1 PRN Reason: Pantoprazole Sodium [Protonix [address] Tablet] 40 mg PO Q6AM #30 tablet.dr Montelukast Sodium [Singulair 10 mg Tablet] 10 mg PO QHS #30 tablet Azithromycin [Zithromax 250 mg Tablet] 250 mg PO DAILY #3 tablet Home Medications: Budesonide/Formoterol Fumarate [Symbicort HFA 160-4.5 mcg Inhaler 6 gm] 2 puff IH Q12 04/20/15 Diltiazem HCl [Cartia Xt] 120 mg PO DAILY 04/20/15 Duloxetine HCl [Cymbalta] 30 mg PO DAILY 04/20/15 Tiotropium Otoe [Spiriva Handihaler 18 mcg/dose (30 Dose)] 1 cap IH DAILY 04/20/15 Trazodone HCl [Desyrel 50 mg Tablet] 50 mg PO QHS 04/20/15 Ziprasidone HCl 80 mg PO BIDACBS 04/20/15 Albuterol Sulfate [Proair HFA Inhalation Aerosol 8.5 gm MDI] 2 puff IH Q4HP PRN #1 04/10/19 Azithromycin [Zithromax 250 mg Tablet] 250 mg PO DAILY #3 tablet 04/10/19 Guaifenesin [Mucinex Sr 600 mg Tablet.sa] 600 mg PO Q12 #14 tablet.sa 04/10/19 Ipratropium/Albuterol Sulfate [Duoneb 3 ml Ampul] 3 ml NEB RTQ6HP PRN #120 vial.neb 04/10/19 Montelukast Sodium [Singulair 10 mg Tablet] 10 mg PO QHS #30 tablet 04/10/19 Nebulizer [Compact Compressor Nebulizer] 1 each MC ASDIR PRN #1 each 04/10/19 Pantoprazole Sodium [Protonix [address] Tablet] 40 mg PO Q6AM #30 tablet. 04/10/19 Prednisone [Deltasone 20 mg Tablet] 60 mg PO DAILY #12 tablet 04/10/19 Roflumilast [Daliresp 500 Mcg Tablet] 500 mcg PO DAILY #30 tablet 04/10/19 History of Present Illiness History of Present Illness: Per H&P by Dr. Graves: RAMÍREZ BATES is a 63 year old female with a history of COPD and chronic respiratory failure with hypoxemia and hypercapnia who presents with several days worth of worsening shortness of breath. She was short of breath at rest but it got worse with exertion. She is not been running a fever. She is not been around anyone she knows to definitely be sick. It got acutely worse this morning and she called EMS. Apparently when they got there she was on her typical 3 L per nasal cannula and her oxygen saturations were in the low 80s. They turn her oxygen up and she was still struggling to breathe. In the ER she was put on BiPAP and was given several breathing treatments. She was noted to be wheezing. Her chest x-ray showed old chronic changes but nothing new such as an infiltrate. Hospital Course Hospital Course: (1) Acute exacerbation of chronic obstructive pulmonary disease (COPD) Plateaued; now maintaining oxygen saturations on nasal cannula while awake while at rest but with significant desaturation with minimal exertion. Primarily a AVAPs dependent. Patient reports she is at her baseline respiratory status. ABG has improved CT chest was negative for acute finding; does demonstrate emphysema. VQ scan was limited but negative for PE Patient was admitted to [facility] on continuous cardiac telemetry. She was provided supplemental oxygen and, initially BiPAP, for support. Her ABGs and respiratory status improved significantly once it was confirmed that the patient utilized AVAPs at home and appropriate adjustments were made. She was provided scheduled and as needed nebulizer treatments and steroid therapy. As her respiratory status improved, both steroids and scheduled nebs were deescalated. Additionally, she recieved mucinex, singulair, and daliresp. She finished 7 day course of IV doxycycline for acute bronchitis. Pulonary toilet was encouraged with Incentive spirometer and flutter valve when off AVAP Discussed with patient's network operations analyst, Dr. Artis. He recommended evaluating for pulmonary embolus (fortunately, negative) and starting macrolide for atypical coverage. She is discharged with an Rx of p.o azithromycin to complete the course of therapy. (2) Acute and chronic respiratory failure ([id number]) Improved; at baseline per patient and . Secondary to #1. Evaluation and management as above. (3) Abdominal distention Resolved; secondary to BiPAP intolerance. Tolerated AVAPS on home settings overnight without abdominal distention. Gastric distention is secondary to gas r/t BiPAP use. CT ABD/Pelvis showed distended gas-filled stomach possibly due to gastroparesis without significant bowel dilatation. Dr. Nuno kindly reviewed the images; no evidence of obstruction upon his review. Received PPI therapy. Have advanced to a cardiac diet; tolerating well. (4) Tobacco dependence Smoking cessation encouraged. Nicotine replacement therapies provided. (5) Depression Depression with anxiety. Continue home medication regiment of Ken. Physical Exam Vital Signs: Temp Pulse Resp BP Pulse Ox 97.4 F 96 17 127/80 H 100 04/10/19 11:59 04/10/19 11:59 04/10/19 11:59 04/10/19 11:59 04/10/19 11:59 General appearance: PRESENT: no acute distress, cooperative, well-developed, well-nourished, other - overweight Head exam: PRESENT: atraumatic, normocephalic Eye exam: PRESENT: conjunctiva pink, EOMI, PERRLA. ABSENT: scleral icterus Mouth exam: PRESENT: moist, tongue midline Teeth exam: PRESENT: poor dentation Respiratory exam: PRESENT: clear to auscultation jeromy, decreased breath sounds - throughout, prolonged expiratory phas, symmetrical, unlabored, other - baseline oxygen requirement. ABSENT: rales, rhonchi, wheezes Cardiovascular exam: PRESENT: RRR, +S1, +S2. ABSENT: diastolic murmur, rubs, systolic murmur Pulses: PRESENT: normal dorsalis pedis pul Vascular exam: PRESENT: normal capillary refill GI/Abdominal exam: PRESENT: normal bowel sounds, soft. ABSENT: distended, guarding, mass, organolmegaly, rebound, tenderness Rectal exam: PRESENT: deferred Extremities exam: PRESENT: full ROM. ABSENT: calf tenderness, clubbing, pedal edema Neurological exam: PRESENT: alert, awake, oriented to person, oriented to place, oriented to time, oriented to situation, CN II-XII grossly intact. ABSENT: motor sensory deficit Psychiatric exam: PRESENT: appropriate affect, normal mood. ABSENT: homicidal ideation, suicidal ideation Skin exam: PRESENT: dry, intact, warm. ABSENT: cyanosis, rash Results Laboratory Results: WBC 10.6 10^3/uL (4.0-10.5) H 04/08/19 05:32 RBC 4.41 10^6/uL (3.72-5.28) 04/08/19 05:32 Hgb 12.2 g/dL (12.0-15.5) 04/08/19 05:32 Hct 37.6 % (36.0-47.0) 04/08/19 05:32 MCV 85 fl (80-97) 04/08/19 05:32 MCH 27.7 pg (27.0-33.4) 04/08/19 05:32 MCHC 32.4 g/dL (32.0-36.0) 04/08/19 05:32 RDW 16.7 % (11.5-14.0) H 04/08/19 05:32 Plt Count 188 10^3/uL (150-450) 04/08/19 05:32 Lymph % (Auto) 18.4 % (13-45) 04/01/19 13:15 Leon % (Auto) 5.8 % (3-13) 04/01/19 13:15 Eos % (Auto) 0.5 % (0-6) 04/01/19 13:15 Baso % (Auto) 0.5 % (0-2) 04/01/19 13:15 Absolute Neuts (auto) 8.3 10^3/uL (1.7-8.2) H 04/01/19 13:15 Absolute Lymphs (auto) 2.0 10^3/uL (0.5-4.7) 04/01/19 13:15 Absolute Monos (auto) 0.6 10^3/uL (0.1-1.4) 04/01/19 13:15 Absolute Eos (auto) 0.1 10^3/uL (0.0-0.6) 04/01/19 13:15 Absolute Basos (auto) 0.1 10^3/uL (0.0-0.2) 04/01/19 13:15 Seg Neutrophils % 74.8 % (42-78) 04/01/19 13:15 D-Dimer 11.35 ug/mL (0.00-0.50) H 04/07/19 11:08 Carbonic Acid 2.03 mmol/L (1.05-1.35) H 04/05/19 06:47 HCO3/H2CO3 Ratio 19:1 04/05/19 06:47 ABG pH 7.39 (7.35-7.45) 04/05/19 06:47 ABG pCO2 67.6 mmHg (35-45) H 04/05/19 06:47 ABG pO2 60.1 mmHg (80-100) L 04/05/19 06:47 ABG HCO3 40.3 mmol/L (20-24) H 04/05/19 06:47 ABG Total CO2 42.4 mmol/L (21-25) H 04/05/19 06:47 ABG O2 Saturation 89.9 % (94-98) L 04/05/19 06:47 ABG Base Excess 12.6 mmol/L 04/05/19 06:47 FiO2 32% 04/05/19 06:47 Sodium 135.5 mmol/L (137-145) L 04/09/19 05:19 Potassium 4.6 mmol/L (3.6-5.0) 04/09/19 05:19 Chloride 91 mmol/L (98-107) L 04/09/19 05:19 Carbon Dioxide 40 mmol/L (22-30) H* 04/09/19 05:19 Anion Gap 5 (5-19) 04/09/19 05:19 BUN 23 mg/dL (7-20) H 04/09/19 05:19 Creatinine 0.58 mg/dL (0.52-1.25) 04/09/19 05:19 Est GFR ( Amer) > 60 (>60) 04/09/19 05:19 Est GFR (MDRD) Non-Af > 60 (>60) 04/09/19 05:19 Glucose 134 mg/dL (75-110) H 04/09/19 05:19 POC Glucose 136 mg/dL (70-110) H 04/01/19 23:00 Calcium 8.6 mg/dL (8.4-10.2) 04/09/19 05:19 Total Bilirubin 0.3 mg/dL (0.2-1.3) 04/01/19 13:15 Direct Bilirubin 0.0 mg/dL (0.0-0.4) 04/01/19 13:15 Neonat Total Bilirubin Not Reportable 04/01/19 13:15 Neonat Direct Bilirubin Not Reportable 04/01/19 13:15 Neonat Indirect Bili Not Reportable 04/01/19 13:15 AST 21 U/L (14-36) 04/01/19 13:15 ALT 14 U/L (<35) 04/01/19 13:15 Alkaline Phosphatase 107 U/L (38-126) 04/01/19 13:15 Creatine Kinase 98 U/L (30-135) 04/03/19 11:47 CK-MB (CK-2) 8.91 ng/mL (<4.55) H 04/03/19 11:47 Troponin I 0.030 ng/mL 04/03/19 11:47 NT-Pro-B Natriuret Pep 346 pg/mL (<125) H 04/01/19 13:15 Total Protein 7.5 g/dL (6.3-8.2) 04/01/19 13:15 Albumin 4.1 g/dL (3.5-5.0) 04/01/19 13:15 Urine Color YELLOW 04/02/19 01:50 Urine Appearance SLIGHTLY-CLOUDY 04/02/19 01:50 Urine pH 6.0 (5.0-9.0) 04/02/19 01:50 Ur Specific [place] 1.019 04/02/19 01:50 Urine Protein 100 mg/dL (NEGATIVE) H 04/02/19 01:50 Urine Glucose (UA) NEGATIVE mg/dL (NEGATIVE) 04/02/19 01:50 Urine Ketones 20 mg/dL (NEGATIVE) H 04/02/19 01:50 Urine Blood NEGATIVE (NEGATIVE) 04/02/19 01:50 Urine Nitrite NEGATIVE (NEGATIVE) 04/02/19 01:50 Urine Bilirubin NEGATIVE (NEGATIVE) 04/02/19 01:50 Urine Urobilinogen NEGATIVE mg/dL (<2.0) 04/02/19 01:50 Ur Leukocyte Esterase SMALL (NEGATIVE) H 04/02/19 01:50 Urine WBC (Auto) 14 /HPF 04/02/19 01:50 Urine RBC (Auto) 3 /HPF 04/02/19 01:50 U Hyaline Cast (Auto) 1 /LPF 04/02/19 01:50 Urine Bacteria (Auto) TRACE /HPF 04/02/19 01:50 Squamous Epi Cells Auto 3 /HPF 04/02/19 01:50 U Non-Squamous Epis Auto 1 /HPF 04/02/19 01:50 Urine Mucus (Auto) MOD /LPF 04/02/19 01:50 Urine Ascorbic Acid NEGATIVE (NEGATIVE) 04/02/19 01:50 Gastric Occult Blood POSITIVE (NEGATIVE) 04/03/19 00:30 04/01/19 04/03/19 04/03/19 13:15 00:01 06:16 CK-MB (CK-2) 4.49 5.82 H 11.30 H Troponin I 0.027 0.027 0.040 NT-Pro-B Natriuret Pep 346 H 04/03/19 11:47 CK-MB (CK-2) 8.91 H Troponin I 0.030 NT-Pro-B Natriuret Pep Impressions: Chest X-Ray 04/01/19 13:27 IMPRESSION: COPD. Chronic blunting of the left CP angle. No acute findings. KUB X-Ray 04/02/19 22:48 IMPRESSION: Distention of the stomach as well as scattered small and large bowel loops with air. Findings are nonspecific but suggestive of ileus. KUB X-Ray 04/02/19 23:24 IMPRESSION: Tip of the enteric tube in the stomach copyright 2011 [employer]- All Rights Reserved KUB X-Ray 04/03/19 00:00 IMPRESSION: NG tube as described. There is still distention of the stomach and proximal bowel distention. Abdomen/Pelvis CT 04/04/19 00:00 IMPRESSION: 1. DISTENDED GAS-FILLED STOMACH. MAY BE DUE TO GASTROPARESIS ALTHOUGH CANNOT EXCLUDE GASTRIC OUTLET OBSTRUCTION. NO SIGNIFICANT BOWEL DILATION. 2. GALLSTONES. 3. NO OTHER SIGNIFICANT OR ACUTE PROCESS IN THE ABDOMEN OR PELVIS. Chest CT 04/04/19 00:00 IMPRESSION: EMPHYSEMATOUS CHANGES WITH CHRONIC SCARRING. NO ACUTE FINDING ON NON-CONTRASTED CHEST CT. Lung Scan-VQ NM 04/07/19 00:00 IMPRESSION: Limited exam perfusion only images obtained secondary to patient intolerance. No definitive wedge-shaped perfusion defect to suggest pulmonary emboli. Apical photopenia likely secondary to emphysematous change. Plan Plan of Treatment: Patient is discharged home into the care of family on her baseline oxygen requirement; they have declined home health services. She is instructed to follow-up with her primary care provider within 1 week. Follow-up with Dr. Artis at the earliest available appointment. Complete full course of antibiotic therapy. Take other medication as prescribed. Eat a heart healthy diet. Do NOT smoke. Return to emergency department as needed for concerning symptoms. Time Spent: Greater than 30 Minutes Stroke Is this a Stroke Patient?: No Acute Heart Failure - Is this a Heart Failure Patient?: No LVEF < 40%?: No- if no continue to question #3
== END 2019-04-10 13:20 | disposition home or self-care (01) | DRG 189 ==
LOC: ER 13:17 → EH 17:31 → 3S 04-02 00:15
PROVIDERS: ADMIT Family Medicine; ATTEND Family Medicine
PROC: 5A09457 Assistance with Respiratory Ventilation, 24-96 Consecutive Hours, Continuous Positive Airway Pressure (ICD-10-PCS; 2019-04-01)
PROC: 0D9670Z Drainage of Stomach with Drainage Device, Via Natural or Artificial Opening (ICD-10-PCS; principal; 2019-04-02)
PROC: 3E02340 Introduction of Influenza Vaccine into Muscle, Percutaneous Approach (ICD-10-PCS; 2019-04-10)
DX: J96.22 Acute and chronic respiratory failure with hypercapnia (principal); J44.1 Chronic obstructive pulmonary disease with (acute) exacerbation; J96.21 Acute and chronic respiratory failure with hypoxia; I10 Essential (primary) hypertension; R12 Heartburn; R07.89 Other chest pain; R10.10 Upper abdominal pain, unspecified; F41.8 Other specified anxiety disorders; F17.200 Nicotine dependence, unspecified, uncomplicated; Z99.81 Dependence on supplemental oxygen; Z79.51 Long term (current) use of inhaled steroids; Z79.899 Other long term (current) drug therapy; Z83.438 Family history of other disorder of lipoprotein metabolism and other lipidemia; Z82.49 Family history of ischemic heart disease and other diseases of the circulatory system; Z83.6 Family history of other diseases of the respiratory system; Z88.8 Allergy status to other drugs, medicaments and biological substances; Z88.2 Allergy status to sulfonamides; Z23 Encounter for immunization
CPT/HCPCS: 36415; 71045; 71250; 74018; 74176; 78580; 78582; 80048; 80053; 81001; 82271; 82550; 82553; 82803; 82962; 83880; 84484; 85025; 85027; 85379; 87040; 90686; 93005; 93010; 94660; 99291; A9540; A9567; C9113; J0456; J1644; J2060; J2920; J2930; J3490; J7060; J7120; J7512; J7620; Q9969